=== PATIENT | female | born 1990 | race Caucasian/White ===

== ENCOUNTER 2024-03-26 15:22 | Outpatient (CLI) | payer OTHER, SELFPAY ==
[2024-03-26 16:20] LABS: Basophils % 0.2 % (0.1-2.0); Eosinophils % 0.4 % (0.1-12.0); Hematocrit 39.4 % (37.0-47.0); Hemoglobin 12.7 g/dL (12.2-16.2); Lymphocytes % 23.3 % (10-50); Mean Corpuscular HGB Conc 32.3 g/dL (31.8-35.4); Mean Corpuscular Hemoglobin 27.1 pg (27.0-31.2); Mean Corpuscular Volume 83.9 fl (81-99); Mean Platelet Volume 10.9 fl (7.4-10.4); Monocytes # 0.4 K/mm3 (0.1-1.0); Monocytes % 4.4 % (1.7-9.3); Neutrophils # 6.3 K/mm3 (1.8-7.8); Neutrophils % 71.6 % (37.0-80.0); Platelet Count 192 K/mm3 (142-424); Red Blood Count 4.69 M/mm3 (4.20-5.40); Red Cell Distribution Width 14.2 % (11.5-17.5); White Blood Count 8.7 K/mm3 (4.8-10.8)
[2024-03-26 16:48] LABS: HCG,Quantitative 15 mIU/ml (0-5.42)
[2024-03-27 12:39] LABS: HIV (1&2) Antibody Rapid NON REACTIVE
[2024-03-28 06:08] LABS: HCV Ab Non Reactive (Non Reactive); Hepatitis B Surface Antigen Negative (Negative)
[2024-03-28 07:13] LABS: Rubella Antibodies, IgG 2.84 index (Immune >0.99)
[2024-03-28 08:39] LABS: Progesterone 10.8 ng/mL (.)
[2024-03-28 13:18] LABS: Rapid Plasma Reagin Ab Titer Non Reactive titer (NonRea<1:1)
== END 2024-03-26 23:59 | disposition home or self-care (01) ==
LOC: LAB 15:25
PROVIDERS: PCP Family Medicine; Visit Provider Obstetrics & Gynecology
DX: Z34.90 Encounter for supervision of normal pregnancy, unspecified, unspecified trimester (principal)
CPT/HCPCS: 36415; 84144; 84702; 85025; 86593; 86762; 86850; 87086; 87340

== ENCOUNTER 2024-03-28 12:25 | Outpatient (CLI) | payer OTHER, SELFPAY ==
[2024-03-28 14:02] LABS: HCG,Quantitative 43 mIU/ml (0-5.42)
== END 2024-03-28 23:59 | disposition home or self-care (01) ==
LOC: LAB 12:26
PROVIDERS: PCP Family Medicine; Visit Provider Obstetrics & Gynecology
DX: Z34.91 Encounter for supervision of normal pregnancy, unspecified, first trimester (principal); Z3A.01 Less than 8 weeks gestation of pregnancy
CPT/HCPCS: 36415; 84702

== ENCOUNTER 2024-03-31 12:01 | Outpatient (CLI) | payer OTHER, SELFPAY ==
[2024-03-31 13:16] LABS: HCG,Quantitative 59 mIU/ml (0-5.42)
== END 2024-03-31 23:59 | disposition home or self-care (01) ==
PROVIDERS: PCP Family Medicine; Visit Provider Obstetrics & Gynecology
DX: Z34.91 Encounter for supervision of normal pregnancy, unspecified, first trimester (principal); Z3A.01 Less than 8 weeks gestation of pregnancy
CPT/HCPCS: 36415; 84702

== ENCOUNTER 2024-04-02 12:38 | Outpatient (CLI) | payer OTHER, SELFPAY ==
[2024-04-02 14:30] LABS: HCG,Quantitative 25 mIU/ml (0-5.42)
== END 2024-04-02 23:59 | disposition home or self-care (01) ==
LOC: LAB 12:40
PROVIDERS: PCP Family Medicine; Visit Provider Obstetrics & Gynecology
DX: Z34.90 Encounter for supervision of normal pregnancy, unspecified, unspecified trimester (principal)
CPT/HCPCS: 36415; 84702

== ENCOUNTER 2024-04-11 13:28 | Outpatient (CLI) | payer OTHER, SELFPAY ==
[2024-04-11 14:47] LABS: HCG,Quantitative < 2 mIU/ml (0-5.42)
== END 2024-04-11 23:59 | disposition home or self-care (01) ==
LOC: LAB 13:28
PROVIDERS: PCP Family Medicine; Visit Provider Obstetrics & Gynecology
DX: O03.9 Complete or unspecified spontaneous abortion without complication (principal)
CPT/HCPCS: 36415; 84702

== ENCOUNTER 2024-05-08 12:17 | Outpatient (CLI) | payer OTHER, SELFPAY ==
[2024-05-08 14:28] LABS: HCG,Quantitative 5189 mIU/ml (0-5.42)
[2024-05-10 10:11] LABS: Progesterone 19.9 ng/mL (.)
== END 2024-05-08 23:59 | disposition home or self-care (01) ==
LOC: LAB 12:18
PROVIDERS: PCP Family Medicine; Visit Provider Obstetrics & Gynecology
DX: Z32.01 Encounter for pregnancy test, result positive (principal)
CPT/HCPCS: 36415; 84144; 84702

== ENCOUNTER 2024-05-22 10:09 | Outpatient (CLI) | payer OTHER, SELFPAY ==
--- NOTE | 2024-05-22 10:17 | US_ITS ---
PROCEDURE: US OB <= 14 WEEKS FETUS CLINICAL INDICATION: dates/viability COMPARISON: No exams were available for comparison FINDINGS: Transvaginal sonographic images of the pelvis were obtained. From her last menstrual period she is 6weeks 5days. An intrauterine gestational sac is present with a pole with a crown-rump length of 0.67cm This correlates to a gestational age of 6weeks 4days. heart tones are present with an FHR of 134bpm. Yolk sac is noted. The yolk sac measures 4.7mm. The right ovary is seen and appears normal. The left ovary is seen and appears normal. There is no fluid in the cul-de-sac. IMPRESSION: 1. Viable fetus within the uterine cavity. 2. Fetus measures 6 weeks 4 days which is congruent with her last menstrual period. Her NICHOLE will remain 01/10/2025. 3. Both ovaries are seen and appear normal. 4. No fluid in the cul-de-sac. Dictated by: Erasto Melo MD 05/22/2024 11:03 Erasto Melo MD in [facility] 05/22/2024 11:03
== END 2024-05-22 23:59 | disposition home or self-care (01) ==
PROVIDERS: PCP Family Medicine; Visit Provider Obstetrics & Gynecology
DX: Z34.90 Encounter for supervision of normal pregnancy, unspecified, unspecified trimester (principal)
CPT/HCPCS: 76801; 87086

== ENCOUNTER 2024-06-16 09:20 | Outpatient (CLI) | payer OTHER, SELFPAY ==
[2024-06-16 10:07] LABS: Basophils % 0.2 % (0.1-2.0); Eosinophils # 0.1 K/mm3 (0.0-0.4); Eosinophils % 0.7 % (0.1-12.0); Hematocrit 39.7 % (37.0-47.0); Hemoglobin 12.7 g/dL (12.2-16.2); Lymphocytes # 2.2 K/mm3 (0.7-4.5); Lymphocytes % 24.2 % (10-50); Mean Corpuscular Hemoglobin 27.2 pg (27.0-31.2); Mean Platelet Volume 9.9 fl (7.4-10.4); Monocytes # 0.4 K/mm3 (0.1-1.0); Monocytes % 4.4 % (1.7-9.3); Neutrophils # 6.4 K/mm3 (1.8-7.8); Neutrophils % 70.5 % (37.0-80.0); Platelet Count 176 K/mm3 (142-424); Red Blood Count 4.66 M/mm3 (4.20-5.40); Red Cell Distribution Width 14.6 % (11.5-17.5); White Blood Count 9.1 K/mm3 (4.8-10.8)
[2024-06-16 11:20] LABS: HIV (1&2) Antibody Rapid NONREACTIVE (NONREACTIVE)
[2024-06-17 08:19] LABS: HCV Ab Non Reactive (Non Reactive); Hepatitis B Surface Antigen Negative (Negative)
[2024-06-17 11:29] LABS: Rubella Antibodies, IgG 2.63 index (Immune >0.99)
[2024-06-17 12:40] LABS: Rapid Plasma Reagin Ab Titer Non Reactive titer (NonRea<1:1)
== END 2024-06-16 23:59 | disposition home or self-care (01) ==
LOC: LAB 09:21
PROVIDERS: PCP Family Medicine; Visit Provider Obstetrics & Gynecology
DX: Z34.90 Encounter for supervision of normal pregnancy, unspecified, unspecified trimester (principal)
CPT/HCPCS: 36415; 85025; 86593; 86762; 86803; 86850; 87340; 87389

== ENCOUNTER 2024-07-11 15:26 | Outpatient (CLI) | payer OTHER, SELFPAY ==
[2024-07-11 16:19] LABS: Glucose,Fasting 113 mg/dl (74-100)
[2024-07-11 17:09] LABS: Glucose 1 Hour 148 mg/dL (74-100)
== END 2024-07-11 23:59 | disposition home or self-care (01) ==
LOC: LAB 15:27
PROVIDERS: PCP Family Medicine; Visit Provider Obstetrics & Gynecology
DX: O09.299 Supervision of pregnancy with other poor reproductive or obstetric history, unspecified trimester (principal); Z86.32 Personal history of gestational diabetes
CPT/HCPCS: 36415; 82951

== ENCOUNTER 2024-07-19 08:44 | Outpatient (CLI) | payer OTHER, SELFPAY ==
[2024-07-19 09:08] LABS: Glucose,Fasting 95 mg/dl (74-100)
[2024-07-19 10:35] LABS: Glucose 1 Hour 154 mg/dL (74-100)
[2024-07-19 11:17] LABS: Glucose 2 Hour 141 mg/dL (74-100)
[2024-07-19 12:14] LABS: Glucose 3 Hour 49 mg/dL (74-100)
== END 2024-07-19 23:59 | disposition home or self-care (01) ==
LOC: LAB 08:45
PROVIDERS: PCP Family Medicine; Visit Provider Obstetrics & Gynecology
DX: O09.299 Supervision of pregnancy with other poor reproductive or obstetric history, unspecified trimester (principal); Z86.32 Personal history of gestational diabetes
CPT/HCPCS: 36415; 82951

== ENCOUNTER 2024-08-22 12:50 | Outpatient (CLI) | payer OTHER, SELFPAY ==
--- NOTE | 2024-08-22 12:56 | US_ITS ---
PROCEDURE: US OB >= 14 WEEKS FETUS CLINICAL INDICATION: 20 week anatomy COMPARISON: US US OB <= 14 WEEKS FETUS from 05/22/2024 FINDINGS: Transabdominal sonographic images of the pelvis were obtained. From her established due date she is . Single viable intrauterine gestation. Cephalic position. Placenta: Posteriorplacenta grade 1. There is an average amount of fluid. The cervix appears satisfactory. Closed and measuring 3.24 cm in length. Complete survey performed and was unremarkable on the submitted images as in PACS. No discrete anomalies identified on survey imaging by technologist. Active fetus. Three-vessel cord with satisfactory umbilical cord insertion. 4- chamber heart noted. Situs, aortic arch, LVOT, RVOT, three-vessel view appear normal. Not well visualized. Survey of brain & ventricles Unremarkable. Cerebellum, thalamus, choroid plexus, cisterna magna appear normal. Face and neck survey unremarkable. Profile, nasion, lips and nose appeared normal. Not well visualized. Diaphragm and chest views unremarkable. Abdomen: Both kidneys noted and unremarkable. Stomach and bladder noted and satisfactory. Spine: Survey of the spine satisfactory with no anomalies identified nor imaged. Cervical, thoracic, lower spine appear normal. Both arms and legs noted. Amniotic Fluid: Adequate. MCV 4.17 cm Measurements: Average ultrasound age 19weeks 6days. Estimated due date by ultrasound age 0401/10/2025. Estimated weight 320g BPD = 19weeks 6days HC = 19weeks 4days AC = 20weeks 2days FL = 19weeks 5days Growth Percentile= 48 Heart Rate = 155bpm Cerebellum = 19weeks 1day Humerus = 20weeks 4days HC/AC is 1.12 FL/BPD is 0.68 FL/AC is 0.21 IMPRESSION: 1. Viable fetus in the cephalic presentation with a posterior placenta grade 1. 2. The fluid is within normal limits, MVP 4.17 cm. 3. Anatomical scan appears normal. Difficult scan secondary to maternal body habitus and position. Profile and cardiac views incomplete. Suggest repeat scan in 2-3 weeks. 4. biometry is consistent with the dates. Dictated by: Erasto Melo MD 08/23/2024 05:52 Erasto Melo MD in [facility] 08/23/2024 05:52
== END 2024-08-22 23:59 | disposition home or self-care (01) ==
LOC: RAD 12:51
PROVIDERS: PCP Family Medicine; Visit Provider Obstetrics & Gynecology
DX: O34.29 Maternal care due to uterine scar from other previous surgery (principal); Z3A.19 19 weeks gestation of pregnancy
CPT/HCPCS: 76805

== ENCOUNTER 2024-09-12 12:45 | Outpatient (CLI) | payer OTHER, SELFPAY ==
--- NOTE | 2024-09-12 12:48 | US_ITS ---
PROCEDURE: US OB FOLLOW UP CLINICAL INDICATION: baby's profile and heart views are not well seen COMPARISON: US US OB <= 14 WEEKS FETUS from 05/22/2024 US US OB >= 14 WEEKS FETUS from 08/22/2024 FINDINGS: Transabdominal sonographic images of the pelvis were obtained. The following parameters are obtained: From her established due date she is 22weeks 6days Viable fetus in the cephalic presentation with a posterior placenta grade 1. The cervix measures 3.7 cm heart rate: 140bpm bpm. Amniotic fluid: Appears normal No obvious anomalies evident. profile seen, nasion, stomach, bladder, kidneys, three-vessel cord, four chamber heart appear normal. cardiac views: Four-chamber heart, LVOT, RVOT, three-vessel view appear normal. IMPRESSION: 1. Viable fetus in the cephalic presentation with a posterior placenta grade 1. 2. The fluid is within normal limits. 3. Continues to be a difficult examination. profile views were seen today. Cardiac views appear normal. Four-chamber heart, LVOT, RVOT and three-vessel views were seen today. Dictated by: Erasto Melo MD 09/12/2024 17:55 Erasto Melo MD in [facility] 09/12/2024 17:55
== END 2024-09-12 23:59 | disposition home or self-care (01) ==
LOC: RAD 12:46
PROVIDERS: PCP Family Medicine; Visit Provider Obstetrics & Gynecology
DX: Z36.2 Encounter for other antenatal screening follow-up (principal); O34.29 Maternal care due to uterine scar from other previous surgery; Z87.59 Personal history of other complications of pregnancy, childbirth and the puerperium; O09.299 Supervision of pregnancy with other poor reproductive or obstetric history, unspecified trimester; Z86.32 Personal history of gestational diabetes
CPT/HCPCS: 76816

== ENCOUNTER 2024-10-18 10:00 | Outpatient (CLI) | payer OTHER, SELFPAY ==
[2024-10-18 11:28] LABS: Basophils % 0.2 % (0.1-2.0); Eosinophils # 0.1 K/mm3 (0.0-0.4); Eosinophils % 0.7 % (0.1-12.0); Hematocrit 35.3 % (37.0-47.0); Hemoglobin 11.3 g/dL (12.2-16.2); Lymphocytes # 2.4 K/mm3 (0.7-4.5); Lymphocytes % 19.8 % (10-50); Mean Corpuscular Hemoglobin 27.9 pg (27.0-31.2); Mean Corpuscular Volume 87.2 fl (81-99); Monocytes # 0.7 K/mm3 (0.1-1.0); Neutrophils # 8.8 K/mm3 (1.8-7.8); Neutrophils % 72.6 % (37.0-80.0); Platelet Count 175 K/mm3 (142-424); Red Blood Count 4.05 M/mm3 (4.20-5.40); Red Cell Distribution Width 13.9 % (11.5-17.5)
[2024-10-18 11:43] LABS: Glucose 1 Hour 160 mg/dL (74-100)
[2024-10-19 06:33] LABS: RPR W/RFX Titers Nonreactive (Nonreactive)
== END 2024-10-18 23:59 | disposition home or self-care (01) ==
LOC: LAB 10:01
PROVIDERS: PCP Family Medicine; Visit Provider Obstetrics & Gynecology
DX: O99.210 Obesity complicating pregnancy, unspecified trimester (principal)
CPT/HCPCS: 36415; 82947; 85025; 86592

== ENCOUNTER 2024-10-29 09:09 | Outpatient (CLI) | payer OTHER, SELFPAY ==
--- NOTE | 2024-10-29 09:13 | US_ITS ---
PROCEDURE: US OB FOLLOW UP CLINICAL INDICATION: Growth COMPARISON: US US OB <= 14 WEEKS FETUS from 05/22/2024 US US OB >= 14 WEEKS FETUS from 08/22/2024 US US OB FOLLOW UP from 09/12/2024 FINDINGS: Transabdominal sonographic images of the pelvis were obtained. The following parameters are obtained: From her established due date she is 29weeks 5days Viable fetus in the cephalic presentation with a posterior placenta grade 2. The cervix measures 4.12 cm heart rate: 153bpm bpm. Estimated weight 16 20 grams, 3 lb 9 oz BPD: 31weeks 1day, 79 percentile HC: 30weeks 5days, 42 percentile AC: 30weeks 6days, 77 percentile FL: 30weeks 3days, 55 percentile HC/AC: 1.05 FL/BPD: 0.75 FL/AC: 0.22 Growth percentile: 72 70 second percentile. Amniotic fluid index: 25.87cm, MVP 8.45 cm 70 second percentile. No obvious anomalies evident. profile seen, stomach, bladder, kidneys, three-vessel cord, four chamber heart appear normal. There is a small intracardiac echogenic foci within the left ventricle. Suggest follow-up . IMPRESSION: 1. Viable fetus in the cephalic presentation with a posterior placenta grade 2. 2. The fluid is elevated with polyhydramnios with an amniotic fluid index 25.87 cm, MVP 8.45 cm. Suggest a maternal medicine consult. 3. There has been good interval growth with the fetus currently 72nd percentile 4. An intracardiac echogenic foci is seen within the left ventricle of the heart and suggest follow-up . 5. The rest of the limited anatomical scan appears normal. Dictated by: Erasto Melo MD 10/29/2024 10:27 Erasto Melo MD in [facility] 10/29/2024 10:27
== END 2024-10-29 23:59 | disposition home or self-care (01) ==
LOC: RAD 09:10
PROVIDERS: PCP Family Medicine; Visit Provider Obstetrics & Gynecology
DX: O09.293 Supervision of pregnancy with other poor reproductive or obstetric history, third trimester (principal); O34.29 Maternal care due to uterine scar from other previous surgery; Z87.59 Personal history of other complications of pregnancy, childbirth and the puerperium; Z86.32 Personal history of gestational diabetes; Z3A.29 29 weeks gestation of pregnancy
CPT/HCPCS: 76816

== ENCOUNTER 2024-11-20 10:44 | Outpatient (CLI) | payer OTHER, SELFPAY ==
--- NOTE | 2024-11-20 10:51 | US_ITS ---
PROCEDURE: US OB BIOPHYSICAL PROFILE CLINICAL INDICATION: BPP with SEBASTIÁN Gestational hypertension COMPARISON: US US OB <= 14 WEEKS FETUS from 05/22/2024 US US OB >= 14 WEEKS FETUS from 08/22/2024 US US OB FOLLOW UP from 09/12/2024 US OB FOLLOW UP from 10/29/2024 FINDINGS: Transabdominal sonographic images of the uterus were obtained. From her established due date she is 32weeks 5days. The following parameters are obtained: Viable Fetus in the cephalic presentation with a posterior placenta grade 2. Average ultrasound age is 34weeks 2days Estimated weight 2,320g, 5 lb 2 oz The cervix measures 3.72 cm. Measurements: heart Rate = 153bpm BPD = 35weeks 0 days, 94 percentile HC = 35weeks 1day, 74 percentile AC = 34weeks 6days, 94 percentile FL = 31weeks 6days, 15 percentile HC/AC is 1.01 FL/BPD is 0.71 FL/AC is 0.2 79 percentile Amniotic fluid index: 19.83cm, MVP 6.60 cm. Qualitative AFV:2 Breathing movements: 2 Gross Body Movements: 2 Tone: 2 Biophysical profile score: 8 No obvious anomalies evident.Kidneys, profile, stomach, bladder, four-chamber heart, three-vessel cord appear normal. IMPRESSION: 1. Viable fetus in the cephalic presentation with a posterior placenta grade 2. 2. The fluid is within normal limits with an amniotic fluid index 19.83 cm, MVP 6.6 cm. The previously described polyhydramnios has now resolved. 3. Biophysical profile is 8/8 with good breathing movement and movement seen. 4. There has been good interval growth with the fetus currently 79th percentile. 5. Limited anatomical scan appears normal. Dictated by: Erasto Melo MD 11/20/2024 13:29 Erasto Melo MD in [place] 11/20/2024 13:29
== END 2024-11-20 23:59 | disposition home or self-care (01) ==
LOC: RAD 10:45
PROVIDERS: PCP Family Medicine; Visit Provider Obstetrics & Gynecology
DX: O40.3XX0 Polyhydramnios, third trimester, not applicable or unspecified (principal); O24.419 Gestational diabetes mellitus in pregnancy, unspecified control; O09.293 Supervision of pregnancy with other poor reproductive or obstetric history, third trimester; O28.3 Abnormal ultrasonic finding on antenatal screening of mother; Z3A.32 32 weeks gestation of pregnancy; Z98.891 History of uterine scar from previous surgery; Z87.59 Personal history of other complications of pregnancy, childbirth and the puerperium
CPT/HCPCS: 76816; 76819

== ENCOUNTER 2024-11-27 10:11 | Outpatient (CLI) | payer OTHER, SELFPAY ==
--- NOTE | 2024-11-27 10:17 | US_ITS ---
PROCEDURE: US OB BIOPHYSICAL PROFILE CLINICAL INDICATION: BPP with SEBASTIÁN COMPARISON: US US OB <= 14 WEEKS FETUS from 05/22/2024 US US OB >= 14 WEEKS FETUS from 08/22/2024 US US OB FOLLOW UP from 09/12/2024 US US OB FOLLOW UP from 10/29/2024 US US OB BIOPHYSICAL PROFILE from 11/20/2024 FINDINGS: Transabdominal sonographic images of the uterus were obtained. From her established due date she is 33weeks 5days. The following parameters are obtained: Viable Fetus in the cephalic presentation with a posterior placenta grade 1-2. Measurements: heart Rate = 136bpm The cervix measures 3.28 cm. Amniotic fluid index: 12.83cm, MVP 4.51 cm. Qualitative AFV:2 Breathing movements: 2 Gross Body Movements: 2 Tone: 2 Biophysical profile score: 8 No obvious anomalies evident.Kidneys, profile, bladder, three-vessel cord appear normal. IMPRESSION: 1. Viable fetus in the cephalic presentation with a posterior placenta grade 1-2. 2. Fluid is within normal limits with an amniotic fluid index 12.83 cm, MVP 4.51 cm. 3. Biophysical profile was not scored by the corporate development intern but there is good breathing movement and movement along with normal fluid and tone. Biophysical profile 8/8 therefore. 4. Limited anatomical scan appears normal. Dictated by: Erasto Melo MD 11/27/2024 18:59 Erasto Melo MD in [place] 11/27/2024 18:59
== END 2024-11-27 23:59 | disposition home or self-care (01) ==
LOC: RAD 10:12
PROVIDERS: PCP Family Medicine; Visit Provider Obstetrics & Gynecology
DX: O40.3XX0 Polyhydramnios, third trimester, not applicable or unspecified (principal); Z87.59 Personal history of other complications of pregnancy, childbirth and the puerperium; O09.293 Supervision of pregnancy with other poor reproductive or obstetric history, third trimester; Z86.32 Personal history of gestational diabetes; O28.3 Abnormal ultrasonic finding on antenatal screening of mother; Z3A.33 33 weeks gestation of pregnancy
CPT/HCPCS: 76819

== ENCOUNTER 2024-12-04 10:26 | Outpatient (CLI) | payer OTHER, SELFPAY ==
--- NOTE | 2024-12-04 10:41 | US_ITS ---
PROCEDURE: US OB BIOPHYSICAL PROFILE CLINICAL INDICATION: GDM, class A2 COMPARISON: US US OB <= 14 WEEKS FETUS from 05/22/2024 US US OB >= 14 WEEKS FETUS from 08/22/2024 US OB FOLLOW UP from 09/12/2024 US OB FOLLOW UP from 10/29/2024 US OB BIOPHYSICAL PROFILE from 11/20/2024 US OB BIOPHYSICAL PROFILE from 11/27/2024 FINDINGS: Transabdominal sonographic images of the uterus were obtained. From her established due date she is 34weeks 5days. The following parameters are obtained: Viable Fetus in the cephalic presentation with a posterior placenta grade 2. Average ultrasound age is 35weeks 6days Estimated weight 2,772g, 6 lb 2 oz Cervix measures 4.52 cm. Measurements: heart Rate = 156bpm BPD = 37weeks 1day, 97 percentile HC = 35weeks 6days, 43 percentile AC = 36weeks 4days, 94 percentile FL = 33weeks 6days, 20 percentile HC/AC is 0.98 FL/BPD is 0.72 FL/AC is 0.2 77 percentile Amniotic fluid index: 17.41cm, MVP 6.08 cm. Qualitative AFV:2 Breathing movements: 2 Gross Body Movements: 2 Tone: 2 Biophysical profile score: 8 No obvious anomalies evident.Kidneys, profile, stomach, bladder, four-chamber heart, three-vessel cord appear normal. IMPRESSION: 1. Viable fetus in the cephalic presentation with a posterior placenta grade 2. 2. The fluid is within normal limits with an amniotic fluid index 17.41, MVP 6.08 cm. 3. Biophysical profile is 8/8 with good breathing movement and movement seen. 4. There has been good interval growth of the fetus currently 77th percentile. 5. Limited anatomical scan appears normal. Dictated by: Erasto Melo MD 12/04/2024 17:47 Erasto Melo MD in [place] 12/04/2024 17:47
== END 2024-12-04 23:59 | disposition home or self-care (01) ==
LOC: RAD 10:27
PROVIDERS: PCP Family Medicine; Visit Provider Obstetrics & Gynecology
DX: O24.419 Gestational diabetes mellitus in pregnancy, unspecified control (principal); Z87.59 Personal history of other complications of pregnancy, childbirth and the puerperium; O09.293 Supervision of pregnancy with other poor reproductive or obstetric history, third trimester; O99.213 Obesity complicating pregnancy, third trimester; Z98.891 History of uterine scar from previous surgery; Z3A.34 34 weeks gestation of pregnancy
CPT/HCPCS: 76816; 76819

== ENCOUNTER 2024-12-11 09:39 | Outpatient (CLI) | payer OTHER, SELFPAY ==
--- NOTE | 2024-12-11 09:45 | US_ITS ---
PROCEDURE: US OB BIOPHYSICAL PROFILE CLINICAL INDICATION: Needing scheduled on 12/11/24-GDM COMPARISON: US US OB <= 14 WEEKS FETUS from 05/22/2024 US US OB >= 14 WEEKS FETUS from 08/22/2024 US OB FOLLOW UP from 09/12/2024 US OB FOLLOW UP from 10/29/2024 US OB BIOPHYSICAL PROFILE from 11/20/2024 US OB BIOPHYSICAL PROFILE from 11/27/2024 US OB BIOPHYSICAL PROFILE from 12/04/2024 FINDINGS: Transabdominal sonographic images of the uterus were obtained. From her established due date she is 35weeks 5days. The following parameters are obtained: Viable Fetus in the cephalic presentation with a posterior placenta grade 2. The cervix measures 3.13 cm-4.12 cm Measurements: heart Rate = 156bpm Amniotic fluid index: 20.18cm, MVP 9.35 cm Qualitative AFV:2 Breathing movements: 2 Gross Body Movements: 2 Tone: 2 Biophysical profile score: 8 No obvious anomalies evident.Kidneys, profile, stomach, bladder, four-chamber heart, three-vessel cord appear normal. IMPRESSION: 1. Viable fetus in the cephalic presentation with a posterior placenta grade 2. 2. The fluid is within normal limits with amniotic fluid index 20.18 cm, MVP 9.35 cm consistent with mild polyhydramnios. 3. Biophysical profile is 8/8 with good breathing movement and movement seen. 4. Limited anatomical scan appears normal. Dictated by: Erasto Melo MD 12/11/2024 16:53 Erasto Melo MD in [place] 12/11/2024 16:53
== END 2024-12-11 23:59 | disposition home or self-care (01) ==
LOC: RAD 09:39
PROVIDERS: PCP Family Medicine; Visit Provider Obstetrics & Gynecology
DX: O24.419 Gestational diabetes mellitus in pregnancy, unspecified control (principal); O99.213 Obesity complicating pregnancy, third trimester; O09.293 Supervision of pregnancy with other poor reproductive or obstetric history, third trimester; Z98.891 History of uterine scar from previous surgery; Z87.59 Personal history of other complications of pregnancy, childbirth and the puerperium; Z3A.35 35 weeks gestation of pregnancy
CPT/HCPCS: 76819

== ENCOUNTER 2024-12-15 11:16 | Outpatient (CLI) | payer OTHER, SELFPAY ==
--- NOTE | 2024-12-15 11:30 | US_ITS ---
PROCEDURE: US OB BIOPHYSICAL PROFILE CLINICAL INDICATION: DEBORA for Non-Reactive NST COMPARISON: US US OB <= 14 WEEKS FETUS from 05/22/2024 US US OB >= 14 WEEKS FETUS from 08/22/2024 US US OB FOLLOW UP from 09/12/2024 US US OB FOLLOW UP from 10/29/2024 US US OB BIOPHYSICAL PROFILE from 11/20/2024 US US OB BIOPHYSICAL PROFILE from 11/27/2024 US US OB BIOPHYSICAL PROFILE from 12/04/2024 US OB BIOPHYSICAL PROFILE from 12/11/2024 FINDINGS: Transabdominal sonographic images of the uterus were obtained. From her established due date she is 36weeks 2days. The following parameters are obtained: Viable Fetus in the cephalic presentation with a posterior placenta grade 2. The cervix measures 3.05 cm-3.98 cm Measurements: heart Rate = 132bpm Amniotic fluid index: 14.59cm, MVP 5.08 cm Qualitative AFV:2 Breathing movements: 2 Gross Body Movements: 2 Tone: 2 Biophysical profile score: 8 No obvious anomalies evident.Kidneys, profile, stomach, bladder, four-chamber heart, three-vessel cord appear normal. There is mildly left renal pelvis dilation measuring 4.7 mm. It was noted by the cloth mercerizer operator that the bladder was distended the entire exam. IMPRESSION: 1. Viable fetus in the cephalic presentation with a posterior placenta grade 2. 2. The fluid is within normal limits with an amniotic fluid index 14.59 cm, MVP 5.08 cm 3. Biophysical profile is 8/8 with good breathing movement and movement seen. 4. There is mild left renal pelvis dilation measuring 4.7 mm. 5. The cloth mercerizer operator noted that the bladder was distended throughout the entire exam. 6. The rest of the limited anatomical scan appears normal. Dictated by: Erasto Melo MD 12/15/2024 14:10 Erasto Melo MD in [place] 12/15/2024 14:10
== END 2024-12-15 23:59 | disposition home or self-care (01) ==
LOC: RAD 11:17
PROVIDERS: PCP Family Medicine; Visit Provider Obstetrics & Gynecology
DX: O28.8 Other abnormal findings on antenatal screening of mother (principal); O24.419 Gestational diabetes mellitus in pregnancy, unspecified control; Z3A.36 36 weeks gestation of pregnancy
CPT/HCPCS: 76819

== ENCOUNTER 2024-12-18 12:57 | Outpatient (CLI) | payer OTHER, SELFPAY ==
--- NOTE | 2024-12-18 13:00 | US_ITS ---
PROCEDURE: US OB BIOPHYSICAL PROFILE CLINICAL INDICATION: Needing scheduled on 12/18/24-GDM COMPARISON: US US OB <= 14 WEEKS FETUS from 05/22/2024 US US OB >= 14 WEEKS FETUS from 08/22/2024 US OB FOLLOW UP from 09/12/2024 US OB FOLLOW UP from 10/29/2024 US OB BIOPHYSICAL PROFILE from 11/20/2024 US OB BIOPHYSICAL PROFILE from 11/27/2024 US OB BIOPHYSICAL PROFILE from 12/04/2024 US OB BIOPHYSICAL PROFILE from 12/15/2024 FINDINGS: Transabdominal sonographic images of the uterus were obtained. From her established due date she is 36weeks 5days. The following parameters are obtained: Viable Fetus in the cephalic presentation with a posterior placenta grade 2. The cervix measures 3.27 cm. Measurements: heart Rate = 142bpm Amniotic fluid index: 15.82cm, MVP 4.80 cm. Qualitative AFV:2 Breathing movements: 2 Gross Body Movements: 2 Tone: 2 Biophysical profile score: 8 No obvious anomalies evident.Kidneys, profile, bladder, stomach, four-chamber heart, three-vessel cord appear normal. IMPRESSION: 1. Viable fetus in the cephalic presentation with a posterior placenta grade 2. 2. The fluid is within normal limits with an amniotic fluid index 15.82 cm, MVP 4.80 cm. 3. Biophysical profile is 8/8 with good breathing movement and movement seen. 4. Limited anatomical scan appears normal. Dictated by: Erasto Melo MD 12/18/2024 13:54 Erasto Melo MD in [place] 12/18/2024 13:54
== END 2024-12-18 23:59 | disposition home or self-care (01) ==
LOC: RAD 12:58
PROVIDERS: PCP Family Medicine; Visit Provider Obstetrics & Gynecology
DX: O24.419 Gestational diabetes mellitus in pregnancy, unspecified control (principal); O99.213 Obesity complicating pregnancy, third trimester; O09.293 Supervision of pregnancy with other poor reproductive or obstetric history, third trimester; Z98.891 History of uterine scar from previous surgery; Z87.59 Personal history of other complications of pregnancy, childbirth and the puerperium; Z3A.36 36 weeks gestation of pregnancy
CPT/HCPCS: 76819

== ENCOUNTER 2024-12-22 04:53 | Inpatient (IN) | payer OTHER, SELFPAY ==
[2024-12-22] VITALS (10 sets, daily range): BP systolic 104–137; BP diastolic 52–84; PULSE 62–102; RESP 16–18; TEMP 36.8–36.9; O2SAT 97–100; BMI 43.7
[2024-12-22] MEDS: LACTATED RINGERS 1000ML 1,000 ML 250 ML IV (05:35)
[2024-12-22 05:47] LABS: Microscopic, Urine URINE MICROSCOPIC (MICROSCOPIC)
[2024-12-22 05:51] LABS: Appearance,Urine CLEAR (Clear); Bilirubin,Urine Negative (Negative); Blood, Urine Negative (Negative); Color,Urine YELLOW (Yellow); Glucose,Urine (UA) Negative (Negative); Ketones,Urine Negative (Negative); Leukocyte Esterase,Urine Negative (Negative); Nitrate,Urine Negative (Negative); PH,Urine 6.5 (5.0-8.5); Protein,Urine Negative (Negative); Urobilinogen,Urine 0.2 EU/dl (0.2)
[2024-12-22 05:53] LABS: Basophils % 0.1 % (0.1-2.0); Eosinophils # 0.1 K/mm3 (0.0-0.4); Eosinophils % 0.6 % (0.1-12.0); Hematocrit 35.8 % (37.0-47.0); Hemoglobin 11.7 g/dL (12.2-16.2); Lymphocytes # 2.6 K/mm3 (0.7-4.5); Lymphocytes % 23.9 % (10-50); Mean Corpuscular HGB Conc 32.7 g/dL (31.8-35.4); Mean Corpuscular Hemoglobin 28.5 pg (27.0-31.2); Mean Corpuscular Volume 87.3 fl (81-99); Mean Platelet Volume 13.2 fl (7.4-10.4); Monocytes # 0.6 K/mm3 (0.1-1.0); Monocytes % 5.1 % (1.7-9.3); Neutrophils # 7.5 K/mm3 (1.8-7.8); Neutrophils % 69.7 % (37.0-80.0); Platelet Count 158 K/mm3 (142-424); Red Cell Distribution Width 14.6 % (11.5-17.5); White Blood Count 10.8 K/mm3 (4.8-10.8)
[2024-12-22 05:58] LABS: Chloride 107 mmol/L (98-107); Potassium 4.4 mmoL/L (3.5-5.1); Sodium 135 mmol/L (136-145)
[2024-12-22 06:01] LABS: Anion Gap 8.4 mEq/L (5-15); Blood Urea Nitrogen 7 mg/dl (7-17); Carbon Dioxide 24 mmol/L (22.0-30.0); Creatinine Clearance Estimated 86 mL/min (50-200); Estimated Glomerular Filt Rate 82 ml/min (>60); GFR (African American) 99 ML/MIN (>60)
[2024-12-22 06:02] LABS: Calcium 8.9 mg/dl (8.4-10.2); Glucose 82 mg/dl (74-100)
[2024-12-22] MEDS: CITRIC ACID/SODIUM CITRATE ORAL SOLN 30ML UDC 30 ML PO (07:05)
--- NOTE | 2024-12-22 07:24 | HMH.PHAINT1 ---
Pharmacy Intervention Comments: MEDICATION RECONCILIATION COMPLETED ON PATIENT USING EXTERNAL FILL HISTORY FROM PHARMACY. -MABEL CABRERA, SHIVAMD
[2024-12-22] MEDS: CEFAZOLIN SODIUM 2 GM in 0.9 % SODIUM CHLORIDE 100 ML IV ×3 (07:27→23:19)
--- NOTE | 2024-12-22 07:30 | EXP.OB.APHP ---
OB - H&P: HPI Antepartum History of Present Illness Chief complaint: Scheduled repeat History of present illness: Mrs Afua Hays is a 34 yo at 37w2d who presents to [facility] for scheduled repeat . complicated by GDMA2, maternal obestiy, history of x 2 and history of uterine myomectomy (Hx of endometriosis, stage 4, with excision of endometriosis, PCOS and fibroid uterus; history of myomectomy by [facility] in [place]). Last operative noted commented on dense adhesions between bowel and left side of uterus and ovary as well as bladder densely adhered. She is taking Glyburide 5 mg PO daily. She is also taking Labetalol 100 mg PO BID for episodic migraines. She has had good care. Baby is active. History of Present Criteria for establishing EDC:: based on 1st trimester US only Labs Blood type: A (+) positive Rubella: immune RPR/VDRL: nonreactive GBS status: unknown HBsAG: negative PFSH PFSH Disclaimer: The information contained in this section may have been updated after the patient was seen, as this information can be updated by other users. Medical History (Updated 12/22/24 @ 09:29 by Blanca Olivas DO) 37 weeks gestation of echogenic intracardiac focus on ultrasound Polyhydramnios in third trimester GDM, class A2 Maternal obesity affecting , antepartum History of endometriosis with history of uterine myomectomy History of gestational hypertension Hx of gestational diabetes in prior , currently resulting from in-vitro fertilization Subchorionic hemorrhage PCOS (polycystic ovarian syndrome) Migraines Surgical History Hx of cholecystectomy Hx of section Family History Mother Diabetes Grandfather Diabetes Father Stroke Grandmother Hypertension Social History (Updated 12/22/24 @ 05:22 by Eboni Berrios) Smoking Status: Former smoker tobacco type: cigarettes alcohol intake: never substance use type: denies use current occupational status: employed Travel in the last 8 weeks: None marital status: number of children: 2 Have you lived/traveled outside [place] in past 30 days?: No Contact w/someone who lives/traveled outside US past 30 days?: No Exposure to someone with infectious disease in past 14 days?: No Do you have a fever (greater than 100.4 F or 38 C)?: No Have you tested positive for COVID-19: No Exposed to someone with COVID-19 in past 14 days?: No Do you have a sore throat?: No Do you have a cough?: No Do you have any weakness?: No Do you have any diarrhea?: No Are you experiencing any unusual bleeding?: No Do you have any muscle aches/pain?: No Do you have any abdominal pain?: No Are you experiencing loss of taste or smell?: No Other Medical History Have you received the Flu Vaccine for this season: No Have you received the Pneumonia Vaccine: No Review of Systems Review of Systems Review of systems:: pertinent systems reviewed and negative unless documented below Meds Home Medications and Allergies Home Medications ?Medication ?Instructions ?Recorded ?Confirmed ?Type vits no.126-ferrous fum 1 tab PO DAILY 05/22/24 12/22/24 History 28 mg iron-folic acid 800 mcg tablet (Classic ) labetalol 100 mg tablet 100 mg PO BID #60 tabs 09/01/24 12/22/24 Rx magnesium 200 mg tablet 800 mg PO BID 09/01/24 12/22/24 History blood sugar diagnostic #100 ea 10/21/24 12/22/24 Rx lancets #200 ea 10/21/24 12/22/24 Rx cetirizine 10 mg capsule (Zyrtec) 10 mg PO DAILY #30 caps 11/05/24 12/22/24 Rx glyburide 5 mg tablet 5 mg PO DAILY #30 tabs 11/05/24 12/22/24 Rx pantoprazole 40 mg tablet,delayed 40 mg PO DAILY #30 tabs 11/19/24 12/22/24 Rx release (Protonix) New Prescriptions to Start Prescriptions: Allergies Allergy/AdvReac Type Severity Reaction Status Date / Time No Known Allergies Allergy Verified 12/15/24 09:33 OB - H&P: Exam Physical Exam Vital signs: Temp Pulse Resp BP Pulse Ox O2 Del Method 98.4 F 102 H 18 127/73 98 Room Air 12/22/24 06:24 12/22/24 06:24 12/22/24 06:24 12/22/24 06:24 12/22/24 06:24 12/22/24 06:24 Constitutional no acute distress and cooperative Routine HEENT Exam Head: Present normocephalic and atraumatic Eye: Absent conjunctivae pink ENT: Present mucous membranes moist Routine Neck Exam Present full ROM Routine Respiratory Exam Present CTA bilaterally and normal respiratory effort Routine Cardiovascular Exam Present RRR Routine Abdominal Exam Present soft (Gravid) Routine Rectal Exam Patient deferred: visual exam Routine Exam External: Present normal urethra appearance; Absent erythema, swelling, lesions or lacerations Routine Extremities Exam Present full ROM; Absent edema or calf tenderness Routine Neurological Exam Present alert, moving all extremities and normal speech Routine Psychiatric Exam Present normal affect and cooperative OB - Results Labs Labs: Short CBC 12/22/24 Range/Units 05:35 WBC 10.8 (4.8-10.8) K/mm3 Hgb 11.7 L (12.2-16.2) g/dL Hct 35.8 L (37.0-47.0) % Plt Count 158 (142-424) K/mm3 BMP 12/22/24 05:35 Sodium 135 L Potassium 4.4 Chloride 107 Carbon Dioxide 24 BUN 7 Creatinine 0.80 Glucose 82 Calcium 8.9 Urine 12/22/24 Range/Units 05:10 Urine Color Yellow (Yellow) Urine Appearance Clear (Clear) Urine pH 6.5 (5.0-8.5) Ur Specific [place] 1.010 (1.005-1.030) Urine Protein Negative (Negative) Urine Glucose (UA) Negative (Negative) OB - A/P Antepartum (1) 37 weeks gestation of : Status: Acute (2) GDM, class A2: Status: Acute (3) Maternal obesity affecting , antepartum: Status: Chronic (4) Episodic migraine: Problem details: History of episodic migraines since adolescence, nonfocal exam. Previous complicated with gestational hypertension. Trial with labetalol was discussed, recommended and approved by IRON GUARDRAIL INSTALLER. Status: Chronic (5) Hx of section: Problem details: x 2 Status: Acute (6) with history of uterine myomectomy: Status: Acute (7) History of gestational hypertension: Status: Resolved (8) Hx of gestational diabetes in prior , currently : Status: Acute Additional Plan Additional Information:: Admit to [facility] for scheduled repeat . Reviewed risks, benefits, alternatives, expectations and possible complications of surgery. All questions addressed and answered. She voiced understanding of risks and possible complications. Consent form signed. Proceed with surgery as scheduled
[2024-12-22 07:38] LABS: RPR W/RFX Titers Nonreactive (Nonreactive)
[2024-12-22 08:09] LABS: Cord Blood PH 7.28 (7.35-7.45)
--- NOTE | 2024-12-22 09:09 | EXP.ANES.CKL ---
[facility] Disclaimer: The information contained in this section may have been updated after the patient was seen, as this information can be updated by other users. Medical History echogenic intracardiac focus on ultrasound Polyhydramnios in third trimester GDM, class A2 Maternal obesity affecting , antepartum History of endometriosis with history of uterine myomectomy History of gestational hypertension Hx of gestational diabetes in prior , currently resulting from in-vitro fertilization Subchorionic hemorrhage PCOS (polycystic ovarian syndrome) Migraines Surgical History Hx of cholecystectomy Hx of section x 2 Family History Mother Diabetes Grandfather Diabetes Father Stroke Grandmother Hypertension Social History (Updated 12/22/24 @ 05:22 by Eboni Berrios) Smoking Status: Former smoker tobacco type: cigarettes alcohol intake: never substance use type: denies use current occupational status: employed Travel in the last 8 weeks: None marital status: number of children: 2 Have you lived/traveled outside US in past 30 days?: No Contact w/someone who lives/traveled outside US past 30 days?: No Exposure to someone with infectious disease in past 14 days?: No Do you have a fever (greater than 100.4 F or 38 C)?: No Have you tested positive for COVID-19: No Exposed to someone with COVID-19 in past 14 days?: No Do you have a sore throat?: No Do you have a cough?: No Do you have any weakness?: No Do you have any diarrhea?: No Are you experiencing any unusual bleeding?: No Do you have any muscle aches/pain?: No Do you have any abdominal pain?: No Are you experiencing loss of taste or smell?: No [facility] Anesthesia Checklist Patient Identification Patient Identification: Arm Band Structural Data Admitted From: Home Planned Operative Procedure/s: Repeat C/S Consent for Planned Operative Procedure(s) Verified: Yes Verified Documents: Surgical Consent and History and Physical NPO Status Verified Time NPO: 00:00 Additional verifications Anesthesia Reactions: No Airway Assessment Mallampati Score:: Class II C-Spine Mobility Assessed: Yes TMJ Mobility Assessed: Yes Dentition: Good Dentition Neurological Assessment Level of Consciousness: Awake, Alert and Appropriate Anesthesia Plan Anesthesia Risk discussed: Yes Anesthesia Plan: Verified ASA Class: II Anesthesia Type: Spinal (with Bilateral TAP Block. Risks/benefits explained. Pt verbalized understanding)
--- NOTE | 2024-12-22 09:10 | P.PNANES_ITS ---
[facility] Anesthesia Record Part I Anesthesia Record I Intake, IV Amount: 1,000 Hydration: Adequate Estimated blood loss (mL): 400 Urine output (mL): 500 Blood Products used (#): none Blood Pressure: 117/52 SaO2: 100 Pulse Rate: 71 Airway Patency: Patent Respiratory Rate: 16 Temperature: 98.2 F Patient is:: Awake and Stable Stable to PACU at:: 09:00
[2024-12-22] MEDS: PROMETHAZINE HCL 25MG/ML 1ML VIAL 12.5 MG IV (09:40)
--- NOTE | 2024-12-22 09:47 | EXP.OP.NOTE ---
Date of procedure: 12/22/24 Pre-op Diagnosis:: 1. IUP at 37w2d 2. GDMA2 3. Maternal obesity 4. Episodic migraine 5. History of x 2 6. History of myomectomy 7. Hx of gesational diabetes in prior Post-op Diagnosis:: 1. IUP at 37w2d 2. GDMA2 3. Maternal obesity 4. Episodic migraine 5. History of x 2 6. History of myomectomy 7. Hx of gesational diabetes in prior 8. Incidental cystotomy Procedure performed:: 1. Repeat Low Transverse Section 2. Repair of incidental cystotomy Surgeon:: Blanca Olivas DO Reservations Clerk(s):: Erasto Melo MD MULTIMEDIA MANAGER:: Chester Hull Anesthesia: spinal Estimated blood loss (mL): 400 Clinical Note:: Mrs Afua Hays is a 34 yo at 37w2d who presents to [facility] for scheduled repeat . complicated by GDMA2, maternal obestiy, history of x 2 and history of uterine myomectomy (Hx of endometriosis, stage 4, with excision of endometriosis, PCOS and fibroid uterus; history of myomectomy by [facility] in [place]). Last operative noted commented on dense adhesions between bowel and left side of uterus and ovary as well as bladder densely adhered. She is taking Glyburide 5 mg PO daily. She is also taking Labetalol 100 mg PO BID for episodic migraines. She has had good care. Baby is active. Operative findings:: 1. Dense adhesions between fascia and subcutaneous fat, bladder densely adhered between uterus and abdominal wall peritoneum. Dense adhesions between uterus and bowel laterally. Unable to see fallopian tubes and ovaries secondary to intrapelvic adhesions 2. Live female baby, Shira Maira, weighing 7 lb 7 oz. AGPARs 7 (1 min), 9 (5 min) Operative note:: The risks, benefits and alternatives of the procedure were reviewed with the patient. Informed consent was obtained. Patient was taken to the operating room where spinal anesthesia was placed. The patient received 2 grams of Ancef preoperatively. Patient was placed in dorsal supine position with a leftward tilt. SCDs in place. Lozano catheter was inserted and was draining clear urine prior to the start of the procedure. heart tones were obtained. Patient was then prepped and draped in normal sterile fashion. Allis clamp test was performed to ensure adequate anesthesia. A Pfannenstiel skin incision was made 2 cm above pubic symphysis along prior Pfannenstiel incision scar. This was carried through to underlying layer of fascia. Fascia was incised in midline, extended laterally with Yates scissors. Superior aspect of fascial incision was grasped with two Lulu clamps, elevated up, and rectus muscle dissected off bluntly and sharply with Yates scissors. Inferior aspect of fascial incision was grasped with two Lulu clamps, elevated up, and rectus muscle dissected off bluntly and sharply with Yates scissors. The retcus muscle was then in the midline and the peritoneum was entered bluntly with a digit. Peritoneal incision was then extended superiorly. Dense adhesions noted between bladder and uterus. Peritoneal incision was cautiously extended inferiorly. Incidental cystotomy was identified right away. Gregg retractor was inserted. The uterine incision was made above the lower uterine segment in a transverse fashion. Clear amniotic fluid was noted. Head was delivered without difficulty. Remainder of body was delivered without difficulty. Mouth and nares were bulb suctioned. Spontaneous cry was noted. Delayed cord clamping was performed for 60 seconds. The umbilical cord was clamped and cut. The infant was handed to awaiting pediatric staff in stable condition. Dr. Diallo was present. Apgars were 7(1 min), 9(5 min). Section of cord obtained for cord gases. Cord blood was obtained. Gentle traction on the umbilical cord and uterine fundal massage delivered the placenta. Placenta was intact. Placenta will be sent to pathology for review. Uterus was cleared of all clots and debris with a moist laparotomy sponge. Corners of the uterine incision were grasped with Allis clamps. The uterine incision was reapproximated with # 1 Vicryl suture in a running, locked stitch. Second layer of the same stitch was used to imbricate the incision. Hemostasis was noted. Gregg retractor was removed. Attention was turned to the bladder. Allis clamps x 2 were placed on corners of cystotomy. Bladder mucosa was reapproximated with 3-0 Vicryl in a running stitch. 2-0 Vicryl was used to imbricate the bladder fascia in a running stitch. Bladder was backfilled with normal saline and methylene blue. Bladder filled easily, no defect or leak. Reinspection of the lower uterine segment demonstrated small amount of oozing. Surgicel powder was applied over uterine incision. Hemostasis was noted. At this point all instruments and sponges were removed from the pelvis.? The densely adhered peritoneum luis armando rectus muscle was reapproximated with two interrupted stitches of 0 Vicryl. The corners of the fascia were grasped with Lulu clamps, and the fascia was reapproximated with two # 1 Vicryl suture overlapped to the right of midline. Subcutaneous tissue was irrigated with clear return of fluids. The subcutaneous tissue was reapproximated with 3-0 Vicryl. The skin was reapproximated with Insorb jamison. Telfa was placed over closed Pfannenstiel skin incision. At the end of the procedure, the uterus was firm with minimal vaginal bleeding. Patient tolerated the procedure well. Instrument, sponges and needle counts were correct x 2. Mom and baby were transported to recovery room in stable condition. Condition: stable Disposition: floor Specimens:: 1. Placenta and umbilical cord 2. Cord blood 3. Cord gases Complications:: Incidental cystotomy secondary to densely adhered bladder to lower uterine segment
[2024-12-22] MEDS: OXYTOCIN/RINGERS LACTATE 30 UNITS/500 ML BAG 40 UNITS IV (09:48)
[2024-12-22] MEDS: ACETAMINOPHEN 500MG TAB 1000 MG PO ×3 (09:52→21:02)
[2024-12-22 10:38] LABS: POC Glucose,Bedside 61 (70-110)
--- NOTE | 2024-12-22 10:42 | P.PNANES_ITS ---
[facility] Anesthesia Record Part II Anesthesia Record Part II Discharge Time: 09:30 Destination: Obstetric PACU nurse assessment reviewed?: Yes Patient Condition:: Good Anesthesia Complications:: None Swallowing reflex intact?: Yes Airway Patency: Patent Cyanosis?: No Blood Pressure: 127/61 SaO2: 100 Respiratory Rate: 18 Pulse Rate: 62 Temperature: 98.2 F Mental Status: Alert & Oriented Pain level:: 0 Nausea and/or vomitting:: None Intake, IV Amount: 0 Hydration: Adequate
[2024-12-22 14:41] LABS: Microscopic,Cath URINE MICROSCOPIC (MICROSCOPIC)
[2024-12-22] MEDS: KETOROLAC 30MG/ML VIAL 30 MG IV ×2 (14:59→21:02)
[2024-12-22 16:32] LABS: Appearance,Urine/Cath CLEAR (Clear); Bilirubin,Cath Negative (Negative); Blood, Urine/Cath Negative (Negative); Color,Urine/Cath YELLOW (Yellow); Glucose,Urine/Cath (UA) Negative (Negative); Ketones,Urine/Cath Negative (Negative); Leukocyte Esterase,Cath Negative (Negative); Nitrate,Cath Negative (Negative); Protein,Urine/Cath Negative (Negative); Specific Gravity, Urine/Cath 1.015 (1.005-1.030); Urobilinogen,Cath 0.2 EU/dl (0.2)
[2024-12-22 18:39] LABS: Squamous Epithelial Ur./Cath Occasional #/hpf (0-5)
[2024-12-22] MEDS: OXYCODONE 5MG IMMEDIATE RELEASE TABLET 5 MG PO (19:25)
[2024-12-22] MEDS: SIMETHICONE 80MG CHEWABLE TABLET 160 MG PO (21:02)
[2024-12-22] MEDS: SENNA 8.6MG TABLET 8.6 MG PO (21:03)
[2024-12-23] MEDS: KETOROLAC 30MG/ML VIAL 30 MG IV (03:37)
[2024-12-23] MEDS: ACETAMINOPHEN 500MG TAB 1000 MG PO ×4 (03:37→21:16)
[2024-12-23 03:41] VITALS: BP 146/62; PULSE 82; RESP 20; TEMP 37.1; O2SAT 99
[2024-12-23] MEDS: IBUPROFEN 400 MG TABLET 800 MG PO ×3 (03:55→20:08)
[2024-12-23 05:58] LABS: Basophils % 0.2 % (0.1-2.0); Eosinophils # 0.1 K/mm3 (0.0-0.4); Eosinophils % 0.5 % (0.1-12.0); Hematocrit 34.4 % (37.0-47.0); Hemoglobin 10.9 g/dL (12.2-16.2); Lymphocytes # 1.5 K/mm3 (0.7-4.5); Mean Corpuscular HGB Conc 31.7 g/dL (31.8-35.4); Mean Corpuscular Hemoglobin 27.9 pg (27.0-31.2); Mean Corpuscular Volume 88.2 fl (81-99); Mean Platelet Volume 13.7 fl (7.4-10.4); Monocytes # 0.5 K/mm3 (0.1-1.0); Monocytes % 4.6 % (1.7-9.3); Neutrophils # 9.2 K/mm3 (1.8-7.8); Neutrophils % 81.2 % (37.0-80.0); Platelet Count 128 K/mm3 (142-424); Red Cell Distribution Width 14.7 % (11.5-17.5); White Blood Count 11.3 K/mm3 (4.8-10.8)
[2024-12-23 06:07] LABS: Albumin Level 2.6 g/dl (3.5-5.0); Chloride 107 mmol/L (98-107); Potassium 4.2 mmoL/L (3.5-5.1); Sodium 136 mmol/L (136-145)
[2024-12-23 06:10] LABS: Alanine Aminotransferase 20 U/L (12-78); Alkaline Phosphatase 81 U/L (38-126); Anion Gap 8.2 mEq/L (5-15); Aspartate Amino Transferase 32 U/L (14-36); Bilirubin,Total 0.3 mg/dl (0.2-1.3); Blood Urea Nitrogen 7 mg/dl (7-17); Carbon Dioxide 25 mmol/L (22.0-30.0); Creatinine Clearance Estimated 86 mL/min (50-200); Estimated Glomerular Filt Rate 82 ml/min (>60); GFR (African American) 99 ML/MIN (>60); Globulin 2.7 g/dL (1.3-3.2); Total Protein,Serum 5.3 g/dl (6.3-8.2)
[2024-12-23 06:11] LABS: Calcium 8.8 mg/dl (8.4-10.2); Glucose 83 mg/dl (74-100)
[2024-12-23 08:30] VITALS: BP 139/75; PULSE 86; RESP 16; TEMP 36.7; O2SAT 99
[2024-12-23] MEDS: OXYCODONE 5MG IMMEDIATE RELEASE TABLET 5 MG PO ×2 (08:31→22:37)
--- NOTE | 2024-12-23 09:13 | EXP.ACUTE.PN ---
Subjective *Date: 12/23/24 *Time: 11:58 Interval history: POD # 1 s/p RLTCS with incidental cystotomy and repair Feeling well. Pain controlled. Formula feeding. Lochia is appropriate. Lozano catheter in place draining clear urine. Passing flatus. Tolerating regular diet. Denies fever/chills, chest pain and shortness of breath. No headaches, vision changes, lightheadedness/dizziness. No lower extremity swelling. Ambulating well ad comfort. Medical Exam Vital signs and Labs for Last 24 Hours: Vital Signs Temp Pulse Resp BP Pulse Ox O2 Del Method 12/23/24 03:41 98.7 F 82 20 146/62 H 99 Room Air 12/22/24 19:56 98.5 F 81 16 137/84 97 Room Air 12/22/24 10:43 18 12/22/24 09:30 98.2 F 62 18 127/61 100 Room Air 12/22/24 09:20 98.2 F 66 18 104/56 L 100 Room Air Intake and Output 12/22/24 12/23/24 12/23/24 23:59 07:59 15:59 Output Total 1300 / 1300 Balance -1300 / -1300 Output: Output, Urine Amount (Catheter) 1300 / 1300 Lozano 1300 / 1300 Laboratory Results - last 24 hr 12/22/24 05:35: Blood Type A Positive, Antibody Screen Negative, Crossmatch (AHG) See Detail 12/22/24 07:30: Urine Color Yellow, Urine Appearance Clear, Urine pH 7.0, Ur Specific Donnellson 1.015, Urine Protein Negative, Urine Glucose (UA) Negative, Urine Ketones Negative, Urine Blood Negative, Urine Nitrate Negative, Urine Bilirubin Negative, Urine Urobilinogen 0.2, Ur Leukocyte Esterase Negative, Urine RBC None, Urine WBC None, Ur Squamous Epith Cells Occasional, Urine Bacteria None 12/22/24 09:15: POC Glucose 61 L 12/23/24 05:07: WBC 11.3 H, RBC 3.90 L, Hgb 10.9 L, Hct 34.4 L, MCV 88.2, MCH 27.9, MCHC 31.7 L, RDW 14.7, Plt Count 128 L, MPV 13.7 H, Neut % (Auto) 81.2 H, Lymph % (Auto) 13.0, Mcculloch % (Auto) 4.6, Eos % (Auto) 0.5, Baso % (Auto) 0.2, Neut # (Auto) 9.2 H, Lymph # (Auto) 1.5, Mcculloch # (Auto) 0.5, Eos # (Auto) 0.1, Baso # (Auto) 0.0, Sodium 136, Potassium 4.2, Chloride 107, Carbon Dioxide 25, Anion Gap 8.2, BUN 7, Creatinine 0.80, Estimated Creat Clear 86, Estimated GFR 82, Est GFR ( Amer) 99, Glucose 83, Calcium 8.8, Total Bilirubin 0.3, AST 32, ALT 20, Alkaline Phosphatase 81, Total Protein 5.3 L, Albumin 2.6 L, Globulin 2.7, Albumin/Globulin Ratio 1.0 L I & O for Labs for Last 24 Hours: Intake & Output 12/20/24 12/21/24 12/22/24 12/23/24 23:59 23:59 23:59 23:59 Intake Total 1000 / 1000 Output Total 1300 / 1300 Balance 1000 / 1000 -1300 / -1300 Weight 255 lb Head: Present atraumatic and normocephalic ENT: Present normal exam Neck: Present normal inspection and full ROM Respiratory: Present CTA bilaterally and normal respiratory effort Cardiac: Present Reg Rate and Rhythm GI: Present soft and normal bowel sounds; Absent tenderness Comments:: Pfannenstiel incision clean/dry/intact with steri strips in place Rectal (female): Present deferred (female): Present deferred Extremities: Present full ROM; Absent edema or calf tenderness Neuro: Present alert, awake and moves all extremities Assessment and Plan *Assessment and plan (1) S/P : Status: Acute Category: Surgical Code(s): Z98.891 - History of uterine scar from previous surgery (2) GDM, class A2: Status: Acute Category: Medical Code(s): O24.419 - Gestational diabetes mellitus in , unspecified control (3) Maternal obesity affecting , antepartum: Status: Chronic Qualifiers: Obesity type affecting : unspecified obesity Qualified Code(s): O99.210 - Obesity complicating , unspecified trimester Category: Medical Code(s): O99.210 - Obesity complicating , unspecified trimester (4) Episodic migraine: Problem Comment: History of episodic migraines since adolescence, nonfocal exam. Previous complicated with gestational hypertension. Trial with labetalol was discussed, recommended and approved by SPINNING SUPERVISOR. Status: Chronic Category: Medical Code(s): G43.909 - Migraine, unspecified, not intractable, without status migrainosus (5) with history of uterine myomectomy: Status: Acute Category: Medical Code(s): O34.29 - Maternal care due to uterine scar from other previous surgery (6) Hx of section: Problem Comment: x 2 Status: Acute Category: Surgical Code(s): Z98.891 - History of uterine scar from previous surgery (7) History of gestational hypertension: Status: Resolved Category: Medical Code(s): Z87.59 - Personal history of other complications of , childbirth and the puerperium Plan Continue routine care Encouraged increased ambulation AM Hgb 10.9 Plan d/c home tomorrow
[2024-12-23] MEDS: PRENATAL MULTIVITAMIN W/IRON 1 EACH PO (16:26)
[2024-12-23 20:16] VITALS: BP 139/80; PULSE 91; RESP 17; TEMP 36.9; O2SAT 98
[2024-12-23] MEDS: NITROFURANTOIN 100MG CAPSULE 100 MG PO (21:16)
[2024-12-23] MEDS: SENNA 8.6MG TABLET 8.6 MG PO (22:37)
[2024-12-24] MEDS: ACETAMINOPHEN 500MG TAB 1000 MG PO (05:21)
[2024-12-24] MEDS: IBUPROFEN 400 MG TABLET 800 MG PO (05:21)
[2024-12-24 05:28] VITALS: BP 133/76; PULSE 78; RESP 17; TEMP 36.9; O2SAT 96
[2024-12-24] MEDS: NITROFURANTOIN 100MG CAPSULE 100 MG PO (08:30)
--- NOTE | 2024-12-24 09:28 | EXP.DC.SUM ---
General Admission date:: 12/22/24 Discharge date: 12/24/24 HPI HPI HPI: POD # 2 s/p RLTCS with incidental cystotomy and repair Feeling well. Pain controlled. Formula feeding. Lochia is light. Lozano catheter in place draining clear urine. Passing flatus. Tolerating regular diet. Denies fever/chills, chest pain and shortness of breath. No headaches, vision changes, lightheadedness/dizziness. No lower extremity swelling. Ambulating well ad comfort. Hospital Course Hospital Course Hospital Course: Mrs Afua Hays is a 34 yo at 37w2d who presents to [facility] for scheduled repeat . complicated by GDMA2, maternal obestiy, history of x 2 and history of uterine myomectomy (Hx of endometriosis, stage 4, with excision of endometriosis, PCOS and fibroid uterus; history of myomectomy by [facility] in [place]). Last operative noted commented on dense adhesions between bowel and left side of uterus and ovary as well as bladder densely adhered. She is taking Glyburide 5 mg PO daily. She is also taking Labetalol 100 mg PO BID for episodic migraines. She has had good care. She underwent repeat low transverse section with incidental cystotomy and cystotomy repair on 12/22/24. There were dense adhesions between fascia and subcutaneous fat, bladder densely adhered between uterus and abdominal wall peritoneum. Dense adhesions between uterus and bowel laterally. Unable to see fallopian tubes and ovaries secondary to intrapelvic adhesions. She delivered a live female baby, Shira Maira, weighing 7 lb 7 oz. AGPARs 7 (1 min), 9 (5 min). EBL 400 mL. She did well /postoperatively. Pain controlled. Formula feeding. Light lochia. Lozano catheter in place. Passing flatus. Tolerating regular diet. Denies fever/chills, chest pain and shortness of breath. No headaches, dizziness/lightheadedness or vision changes. Vital signs stable, afebrile. Heart regular rate and rhythm. Lungs clear to auscultation. Abdomen soft, nontender. No lower extremity swelling. Ambulating well ad comfort. Normal hospital course. She was discharged to home on POD # 2 with instructions to follow-up in the office on 01/01 for postop visit and catheter removal. Exam Data for Last 24 hours Vital signs and Labs for Last 24 Hours: Temp Pulse Resp BP Pulse Ox O2 Del Method 98.5 F 78 17 133/76 96 Room Air 12/24/24 05:28 12/24/24 05:28 12/24/24 05:28 12/24/24 05:28 12/24/24 05:28 12/24/24 05:28 I & O for Last 24 hours: Intake & Output 12/21/24 12/22/24 12/23/24 12/24/24 23:59 23:59 23:59 23:59 Intake Total 1000 / 1000 Output Total 1300 / 1300 Balance 1000 / 1000 -1300 / -1300 Weight 255 lb Constitutional Constitutional: no acute distress and cooperative *Routine HEENT Exam Head: Present normocephalic and atraumatic Eye: Absent conjunctivae pink ENT: Present mucous membranes moist *Routine Neck Exam Neck: Present full ROM *Routine Respiratory Exam Respiratory: Present CTA bilaterally and normal respiratory effort *Routine Cardiovascular Exam Cardiovascular: Present RRR *Routine Abdominal Exam Abdominal: Present soft and normoactive bowel sounds; Absent tenderness Comments: Pfannenstiel incision clean/dry/intact *Routine Rectal Exam Patient deferred: visual exam *Routine Exam Patient deferred: external exam *Routine Extremities Exam Extremities: Present full ROM; Absent edema or calf tenderness *Routine Neurological Exam Neurological: Present alert, moving all extremities and normal speech Routine Psychiatric Exam Psychiatric: Present normal affect and cooperative DS: Diagnosis Discharge Diagnosis (1) S/P : Status: Acute Code(s): Z98.891 - History of uterine scar from previous surgery (2) GDM, class A2: Status: Acute Code(s): O24.419 - Gestational diabetes mellitus in , unspecified control (3) Maternal obesity affecting , antepartum: Status: Chronic Code(s): O99.210 - Obesity complicating , unspecified trimester Qualifiers: Obesity type affecting : unspecified obesity Qualified Code(s): O99.210 - Obesity complicating , unspecified trimester (4) Episodic migraine: Status: Chronic Code(s): G43.909 - Migraine, unspecified, not intractable, without status migrainosus Problem details: History of episodic migraines since adolescence, nonfocal exam. Previous complicated with gestational hypertension. Trial with labetalol was discussed, recommended and approved by DRUM DYEING MACHINE OPERATOR. (5) with history of uterine myomectomy: Status: Acute Code(s): O34.29 - Maternal care due to uterine scar from other previous surgery (6) Hx of section: Status: Acute Code(s): Z98.891 - History of uterine scar from previous surgery Problem details: x 2 (7) History of gestational hypertension: Status: Resolved Code(s): Z87.59 - Personal history of other complications of , childbirth and the puerperium Meds Home Medications and Allergies Home Medications ?Medication ?Instructions ?Recorded ?Confirmed ?Type vits no.126-ferrous fum 1 tab PO DAILY 05/22/24 12/22/24 History 28 mg iron-folic acid 800 mcg tablet (Classic ) labetalol 100 mg tablet 100 mg PO BID #60 tabs 09/01/24 12/22/24 Rx magnesium 200 mg tablet 800 mg PO BID 09/01/24 12/22/24 History blood sugar diagnostic #100 ea 10/21/24 12/22/24 Rx lancets #200 ea 10/21/24 12/22/24 Rx cetirizine 10 mg capsule (Zyrtec) 10 mg PO DAILY #30 caps 11/05/24 12/22/24 Rx pantoprazole 40 mg tablet,delayed 40 mg PO DAILY #30 tabs 11/19/24 12/22/24 Rx release (Protonix) ibuprofen 800 mg tablet 800 mg PO Q8H PRN pain #20 tabs 12/24/24 Rx nitrofurantoin macrocrystal 100 mg 100 mg PO BID #16 caps 12/24/24 Rx capsule oxycodone 5 mg tablet 5 mg PO Q4HP PRN Moderate Pain 12/24/24 Rx (4-6) #20 tabs New Prescriptions to Start Prescriptions: ibuprofen Blanca Olivas nitrofurantoin macrocrystal Blanca Olivas oxycodone Blanca Olivas Allergies Allergy/AdvReac Type Severity Reaction Status Date / Time No Known Allergies Allergy Verified 12/15/24 09:33 Discharge Plan Disposition Patient Disposition: Home, Self-Care Condition: Good Discharge Order Discharge Orders: Discharge Order (Routine); Ordered 12/24/24 Ordered By: Blanca Olivas Follow up Plan Follow up with: Blanca Olivas DO [Staff Physician] - 01/01/25 2:45 pm Prescriptions/Medication Reconciliation: New nitrofurantoin macrocrystal 100 mg Capsule 100 mg PO BID Qty: 16 0RF oxycodone 5 mg Tablet 5 mg PO Q4HP PRN (Reason: Moderate Pain (4-6)) Qty: 20 0RF ibuprofen 800 mg tablet 800 mg PO Q8H PRN (Reason: pain) Qty: 20 0RF Continued Classic 28 mg iron- 800 mcg tablet 1 tab PO DAILY magnesium 200 mg tablet 800 mg PO BID labetalol 100 mg tablet 100 mg PO BID Qty: 60 3RF (DME) blood sugar diagnostic Strip See Rx Instructions .Route Qty: 100 2RF Rx Instructions: 4x daily (DME) lancets Misc See Rx Instructions .Route Qty: 200 0RF Rx Instructions: 4x daily Zyrtec 10 mg capsule 10 mg PO DAILY Qty: 30 3RF pantoprazole [Protonix] 40 mg tablet,delayed release (DR/EC) 40 mg PO DAILY Qty: 30 2RF Discontinued glyburide 5 mg tablet 5 mg PO DAILY Qty: 30 3RF Problem Reconciliation Problems Reviewed?: Yes Patient Discharge Instructions ACTIVITY: Limited activity DIET: continue same diet and regular diet Additional Instructions: Congratulations!! Discharge: 1. Take 800 mg Ibuprofen every 8 hours as needed for pain. You can also take 500-1000 mg of Tylenol in between doses, every 6-8 hours. If pain persists you can take Oxycodone 5 mg, 1 tablet every 4-6 hours or more as needed. 2. Nothing in the vagina for 6 weeks - no intercourse, douching or tampons. No tub baths/hot tubs or swimming pools - Drink plenty of fluids. - No strenuous activity or driving until released by your doctor. - Don't lift anything heavier than your in the pumpkin seat. 3. Reasons to return to L&D or call On-Call doctor - fever (greater than 100.4) - heavy vaginal bleeding (soaking through 1 pad in less than 2 hours) - vaginal discharge (malodorous and/or purulent) - severe headaches not resolved by medication or rest and leg tenderness/edema 4. depression/blues - Normal to feel anxious/overwhelmed for first 2 weeks - Talk to your doctor if: severe anxiety, trouble bonding with baby, withdrawing from other family members, thoughts of harming yourself or others Blanca Olivas DO [facility] [place] [phone] Patient Instructions: Depression, Hemorrhage, DI for , DI for Pre-eclampsia, How to Care for Your Lozano Catheter -- Female, Catheter-Associated Urinary Tract Infection, [facility] Post Discharge Instructions Print Language: Nepalese Providers Primary Care Provider: Mele Perry Admit Provider: Blanca Olivas Attending Provider: Blanca Olivas
== END 2024-12-24 10:49 | disposition home or self-care (01) | DRG 787 ==
PROVIDERS: Admitting Provider Obstetrics & Gynecology; PCP Family Medicine; Visit Provider Obstetrics & Gynecology
PROC: 10D00Z1 Extraction of Products of Conception, Low, Open Approach (ICD-10-PCS; CPT 59514; principal; 2024-12-22 07:30)
DX: O34.211 Maternal care for low transverse scar from previous cesarean delivery (principal); N99.72 Accidental puncture and laceration of a genitourinary system organ or structure during other procedure; O24.425 Gestational diabetes mellitus in childbirth, controlled by oral hypoglycemic drugs; Z3A.37 37 weeks gestation of pregnancy; O99.214 Obesity complicating childbirth; E66.9 Obesity, unspecified; N85.8 Other specified noninflammatory disorders of uterus; Z37.0 Single live birth
CPT/HCPCS: 36415; 59025; 80048; 80053; 81001; 82800; 82962; 85025; 86592; 86850; J0666; J1885; J2405; J2550; J3010; J7120

== ENCOUNTER 2025-06-03 10:35 | Outpatient (CLI) | payer OTHER, SELFPAY ==
[2025-06-03 14:30] LABS: Hemoglobin A1C 5.1 % (4.0-6.0)
[2025-06-03 15:00] LABS: Alanine Aminotransferase 23 U/L (12-78); Albumin Level 4.1 g/dl (3.5-5.0); Albumin/Globulin Ratio 1.8 (1.1-1.8); Alkaline Phosphatase 55 U/L (38-126); Anion Gap 12.6 mEq/L (5-15); Aspartate Amino Transferase 21 U/L (14-36); Bilirubin,Total 0.5 mg/dl (0.2-1.3); Blood Urea Nitrogen 8 mg/dl (7-17); Calcium 9.1 mg/dl (8.4-10.2); Carbon Dioxide 27 mmol/L (22.0-30.0); Chloride 104 mmol/L (98-107); Creatinine,Serum 0.80 mg/dl (0.52-1.04); Estimated Glomerular Filt Rate 82 ml/min (>60); GFR (African American) 99 ML/MIN (>60); Globulin 2.3 g/dL (1.3-3.2); Glucose 75 mg/dl (74-100); Magnesium 1.9 mg/dl (1.6-2.3); Potassium 4.6 mmoL/L (3.5-5.1); Sodium 139 mmol/L (136-145); Total Protein,Serum 6.4 g/dl (6.3-8.2); Uric Acid 4.7 mg/dl (2.5-6.2)
[2025-06-03 15:10] LABS: 25-OH Vitamin D, Total 35.8 ng/mL (30-100)
[2025-06-03 15:17] LABS: T4 (Thyroxine) 9.6 ug/dl (5.53-11.0)
[2025-06-03 15:30] LABS: Thyroid Stimulating Hormone 1.68 uIU/mL (0.465-4.68)
[2025-06-03 15:49] LABS: Vitamin B12 215 pg/mL (239-931)
[2025-06-03 16:58] LABS: Ferritin 10.4 ng/ml (6.24-137)
--- OUTSIDE RECORDS SUMMARY | 2025-06-04 10:17 | XMS_ITS | Encounter Summary ---
Author Organization [facility] Address [address] [place] [id number] Care Team Providers Care Upkeep Mechanic Name Role Phone Mele Perry MD Primary Care Provider + Reason for Visit * Reason Comments Med Refill Encounter Details Date Type Department Care Team (Late st Contact Info) Description 05/04/2025 Refill [facility] [address] [place] [address] Mele Perry MD [address] [facility] [place] [address] Social History Tobacco Use Types Packs/Day Years Used Date Smoking Tobacco: Never Smokeless Tobacco: Never Alcohol Use Standard Drinks/Week Comments Not Currently 0 (1 standard drink = 0.6 oz pur e alcohol) rare PHQ-2 Answer Date Recorded Retired PHQ-9: Brief Depression Severity Measure Score 0 04/03/2024 Comments No Sex and Gender Information Value Date Recorded Sex Assigned at Female 11/06/2024 9:26 AM EST Legal Sex Female 4:46 PM EDT Gender Identity Not on file Sexual Orientation Straight 11/06/2024 9: 26 AM EST documented as of this encounter Plan of Treatment Not on file documented as of this encounter Visit Diagnoses Not on filedocumented in this encounter Care Teams Upkeep Mechanic Relationship Specialty Start Date End Date Mele Perry MD [address] [facility] [place] [address] PCP - General Family Medicine 11/07/24 documented as of this encounter
--- OUTSIDE RECORDS SUMMARY | 2025-06-04 10:17 | XMS_ITS | Clinical Summary ---
Author Organization [facility] Address [address] [place] [address] Care Team Providers Care Technical Illustrator Name Role Phone Mele Perry MD Primary Care Provider + Allergies No known active allergies Medications cetirizine (zyrTEC) 10 MG tablet Take 1 tablet by mouth Daily. 11/05/2024 Active glyburide (DIAbeta) 5 MG tablet Take 1 tablet by mouth Daily. 11/05/2024 Active magnesium oxide (MAG-OX) 400 MG tablet Take 2 tablets by mouth 2 (Two) Times a Day. Active Vit-Fe Fumarate-FA ( vitamin 27-0.8) 27-0.8 MG tablet tablet Take 1 tablet by mouth Daily. Active labetalol (NORMODYNE) 100 MG tablet TAKE ONE TABLET BY MOUTH TWICE DAILY 60 tablet 11 05/05/2025 Active Active Problems Problem Noted Date Diagnosed Date Gestational diabetes mellitu s (GDM) controlled on oral hypoglycemic drug, antepartum 11/12/2024 Assessment & Plan (11/12/2024 2:48 PM EST): Patient is currently taking Glyburide 5mgs qam. She reports that her fastings are 75-92 and her post-prandial values are 83-110's. - Follow-up scheduled in 4wks for growth assessment History of endometriosis 04/03/2024 Hx of section 04/03/2024 Assessment & Plan (11/12/2024 2:49 PM EST): Reports dense adhesions with last . 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 Encounters Date Type Department Care Team Description 05/04/2025 Refill [facility] [address] [place] [address] Mele Perry MD from Last 3 Months Family History Medical History Relation Name Comments Aneurysm Father Stroke Father Aneurysm Paternal Grandmother Cancer Paternal Grandmother Lung Ca ncer Relation Name Status Comments Father Paternal Grandmother Social History Tobacco Use Types Packs/Day Years Used Date Smoking Tobacco: Never Smokeless Tobacco: Never Tobacco Cessation:Counseling Given: Not Answered Alcohol Use Standard Drinks/Week Comments Not Currently [...] Orientation Straight 11/06/2024 9: 26 AM EST Last Filed Vital Signs Vital Sign Reading Time Taken Comments Blood Pressure 121/72 11/07/2024 8:02 AM EST Pulse 114 07/07/2024 3:29 PM EDT Temperature 36.8 C (98.2 F) 07/07/2024 3:29 PM EDT Respiratory Rate 20 07/07/2024 3:29 PM EDT Oxygen Saturation 98% 07/07/2024 3:29 PM EDT Inhaled Oxygen Concentration - - Weight 111 kg (244 lb) 11/07/2024 8:02 AM EST Height 160 cm (5' 3 ) 11/07/2024 8:06 AM EST Body Mass Index 43.22 11/07/2024 8:02 AM EST Plan of Treatment Health Maintenance Due Date Last Done Comments Annual Gynecologic Pelvic an d Breast Exam 1990 ANNUAL PHYSICAL 07/11/2017 HEPATITIS C SCREENING 07/11/2017 COVID-19 Vaccine (1 - 2023-2 5 season) 2025 INFLUENZA VACCINE 06/17/2025 PAP SMEAR 03/26/2027 03/26/2024 (Patient-Reported (Performed Externally)) TDAP/TD VACCINES (2 - Td or Tdap) 10/23/2034 10/23/2024 Pneumococcal Vaccine 0-49 Aged Out No longer eligible based on patient's age to complete this topic Insurance [employer] Care Teams Technical Illustrator Relationship Specialty Start Date End Date Mele Perry MD [facility] [place] [address] PCP - General Family Medicine 11/07/24
[2025-06-05 05:23] LABS: RA Latex Turbid. <10.0 IU/mL (<14.0)
[2025-06-05 06:33] LABS: Cytomegalovirus (CMV) Ab, IgG >10.00 U/mL (0.00-0.59); Cytomegalovirus (CMV) Ab, IgM <30.0 AU/mL (0.0-29.9)
[2025-06-05 08:33] LABS: Testosterone,Total 50 ng/dL (8-60); Triiodothyronine (T3) Free 4.0 pg/mL (2.0-4.4)
[2025-06-05 15:13] LABS: EBV Nuclear Antigen Ab, IgG >600.0 U/mL (0.0-17.9)
== END 2025-06-03 23:59 | disposition home or self-care (01) ==
LOC: LAB.DROPOF 06-04 10:13
PROVIDERS: PCP Nurse Practitioner Family; Visit Provider Nurse Practitioner Family
DX: D64.9 Anemia, unspecified (principal); E28.2 Polycystic ovarian syndrome; M25.50 Pain in unspecified joint; G43.909 Migraine, unspecified, not intractable, without status migrainosus; Z86.32 Personal history of gestational diabetes
CPT/HCPCS: 80053; 82306; 82607; 82670; 82728; 83036; 83735; 84144; 84403; 84436; 84443; 84481; 84550; 85651; 86038; 86376; 86431; 86644; 86645; 86664; 86665; 86800

== ENCOUNTER 2025-07-06 08:12 | Outpatient (CLI) | payer OTHER, SELFPAY ==
--- OUTSIDE RECORDS SUMMARY | 2025-07-06 08:20 | XMS_ITS | Clinical Summary ---
Author Organization [facility] Address [address] [place] [address] Care Team Providers Care Insulation Inspector Name Role Phone Mele Perry MD Primary [...] (07/12/2017): Added automatically from request for surgery [id number] Assessment & Plan (11/12/2024 2:46 PM EST): Patient is s/p multiple imaging studies and consult with Neurosurgery and this has been deemed to be a normal variant in vessel size and not an AVM. Encounters Date Type Department Care Team Description 05/04/2025 Refill [facility] [address] [place] [...] ANNUAL PHYSICAL 07/11/2017 HEPATITIS C SCREENING 07/11/2017 INFLUENZA VACCINE 04/17/2025 PAP SMEAR 03/26/2027 03/26/2024 (Patient-Reported (Performed Externally)) TDAP/TD VACCINES (2 - Td or Tdap) 10/23/2034 10/23/2024 Pneumococcal Vaccine 0-49 Aged Out No longer eligible based on patient's age to complete this topic Insurance [employer] Care Teams Insulation Inspector Relationship Specialty Start Date End Date Mele Perry MD [address] [facility] [place] [address] PCP - General Family Medicine 11/07/24
--- NOTE | 2025-07-06 08:30 | MR_ITS ---
FINAL REPORT TECHNIQUE: Multiplanar MR without contrast CLINICAL HISTORY: worsening headaches hx of migraine headaches for years FINDINGS: Diffusion sequences show no signal abnormality to indicate acute infarct. No mass, hemorrhage or edema is seen. Ventricles are normal. Major vascular flow voids are intact. IMPRESSION: Unremarkable MR of the brain without contrast Reviewed, Interpreted and Dictated by Feliciano Lopez MD Transcribed by Leonie Cruz Authenticated and [facility]
--- NOTE | 2025-07-06 09:15 | MR_ITS ---
FINAL REPORT TECHNIQUE: Multiple projection images of the brain and venous vasculature was performed with and without contrast. The raw data images were also reviewed. CLINICAL HISTORY: worsening headaches hx of migraines headaches for years FINDINGS: The superior sagittal sinus and right transverse sinus is patent without filling defect. Sigmoid sinuses patent. No venous abnormality is identified. IMPRESSION: No evidence of dural venous sinus thrombosis. Reviewed, Interpreted and Dictated by Feliciano Lopez MD Transcribed by Leonie Cruz Authenticated and [facility]
[2025-07-06] MEDS: SODIUM CHLORIDE 0.9% 10ML SYR (RAD ONLY) 10 ML IV (09:24)
[2025-07-06] MEDS: GADOTERIDOL INJ 20ML SYRINGE 20 ML IV (09:24)
[2025-07-06] MEDS: 0.9 % SODIUM CHLORIDE 50 ML VIAL 20 ML IV (09:24)
== END 2025-07-06 23:59 | disposition home or self-care (01) ==
LOC: RAD 08:13
PROVIDERS: PCP Nurse Practitioner Family; Visit Provider Specialist
DX: G08 Intracranial and intraspinal phlebitis and thrombophlebitis (principal); G93.2 Benign intracranial hypertension
CPT/HCPCS: 70546; 70551; A9576

== ENCOUNTER 2025-07-31 07:16 | Day surgery (SDC) | payer OTHER, SELFPAY ==
[2025-07-31 07:25] VITALS: BP 107/72; PULSE 84; RESP 16; O2SAT 96; BMI 39.8
[2025-07-31 07:42] VITALS: BP 131/70; PULSE 69; RESP 18; O2SAT 100
[2025-07-31 07:43] VITALS: BP 131/70; PULSE 69; RESP 18; O2SAT 100
[2025-07-31 07:52] VITALS: BP 136/69; PULSE 73; RESP 16; O2SAT 96
[2025-07-31] MEDS: LIDOCAINE 1% 30ML PF VIAL 30 ML (07:58)
--- NOTE | 2025-07-31 08:00 | PC.NURSE ---
pt laying back in recliner, gatorade given to pt, lights on in room for comfort. Pt did report headache has worsened from prior to procedure. After care handout copy given to patient to be taken home. Instructions gone over pre-procedure with pt.
[2025-07-31 08:20] VITALS: BP 133/67; PULSE 65; RESP 16; O2SAT 99
--- NOTE | 2025-07-31 08:20 | PC.NURSE ---
pt reports headache pain 6/10 at this time. Denies dizziness. Pt education again about resting, laying flat if possible for the rest of today. Drinking caffeine and plenty of water and/or gatorade. Pt to call office for any issues, if it after hours pt education to call the corn sheller operator and have them page Dr. Arora. Pt is to follow up with Dr. Cordero for procedure results. Pt verbalized understanding of all. Walked pt to the lobby where her ride was.
[2025-07-31 08:32] VITALS: BP 115/76; PULSE 61; RESP 16; O2SAT 97
--- NOTE | 2025-07-31 08:33 | PC.NURSE ---
pt reports headache has improved, rating pain 5/10 at this time. Pt states no needs at this time
[2025-07-31 08:59] LABS: Volume,CSF 20.5 mL
[2025-07-31 09:00] LABS: Volume,CSF 20.5 mL
[2025-07-31 09:02] LABS: White Blood Cell,CSF 3 cells/uL (0-5)
[2025-07-31 09:03] LABS: White Blood Cell,CSF 2 cells/uL (0-5)
[2025-07-31 09:06] LABS: Tube Number: Tube 1; Tube Number: Tube 3
--- NOTE | 2025-07-31 09:08 | EXP.HP ---
History of Present Illness *Admission Date: 07/31/25 *Reason for visit:: Lumbar puncture *History of present illness: This patient is referral from Dr. Cordero for lumbar puncture for assessment of CSF leak as headaches [facility] Disclaimer: The information contained in this section may have been updated after the patient was seen, as this information can be updated by other users. Medical History (Updated 07/31/25 @ 09:11 by Kun Arora MD) Pseudotumor cerebri syndrome Benign intracranial hypertension 37 weeks gestation of echogenic intracardiac focus on ultrasound Polyhydramnios in third trimester GDM, class A2 Maternal obesity affecting , antepartum History of endometriosis with history of uterine myomectomy History of gestational hypertension Hx of gestational diabetes in prior , currently resulting from in-vitro fertilization Subchorionic hemorrhage PCOS (polycystic ovarian syndrome) Migraines Surgical History S/P Hx of cholecystectomy Hx of section Family History Mother Diabetes Grandfather Diabetes Father Stroke Grandmother Hypertension Social History Smoking Status: Never smoker alcohol intake: current alcohol intake frequency: holidays/special occasions only substance use type: denies use current occupational status: employed Travel in the last 8 weeks?: None marital status: number of children: 2 Have you lived/traveled outside US in past 30 days?: No Contact w/someone who lives/traveled outside US past 30 days?: No Exposure to someone with infectious disease in past 14 days?: No Do you have a fever (greater than 100.4 F or 38 C)?: No Have you tested positive for COVID-19?: No Exposed to someone with COVID-19 in past 14 days?: No Do you have a sore throat?: No Do you have a cough?: No Do you have any weakness?: No Do you have any diarrhea?: No Are you experiencing any unusual bleeding?: No Do you have any muscle aches/pain?: No Do you have any abdominal pain?: No Are you experiencing loss of taste or smell?: No Other Medical History Have you received the Flu Vaccine for this season: No Have you received the Pneumonia Vaccine: No Meds Home Medications and Allergies Home Medications ?Medication ?Instructions ?Recorded ?Confirmed ?Type magnesium 200 mg tablet 800 mg PO BID 09/01/24 07/31/25 History cetirizine 10 mg tablet See Rx Instructions .Route 04/02/25 07/31/25 Rx .COMPLEX #30 tabs atogepant 60 mg tablet (Qulipta) 60 mg PO DAILY #30 tabs 07/08/25 07/31/25 Rx rimegepant 75 mg disintegrating 75 mg PO ONCE PRN migraine 07/08/25 07/31/25 Rx tablet (Nurtec ODT) headache #8 tabs New Prescriptions to Start Prescriptions: Allergies Allergy/AdvReac Type Severity Reaction Status Date / Time No Known Allergies Allergy Verified 07/24/25 14:45 Exam Data for Last 24 hours Vital signs and Labs for Last 24 Hours: Pulse Resp BP Pulse Ox O2 Del Method 61 16 115/76 97 Room Air 07/31/25 08:32 07/31/25 08:32 07/31/25 08:32 07/31/25 08:32 07/31/25 08:32 Laboratory Results - last 24 hr 07/31/25 07:40: CSF Mononuclear WBCs % TNP 07/31/25 07:40: CSF Mononuclear WBCs % TNP, CSF Polynuclear WBCs % TNP 07/31/25 07:40: CSF Polynuclear WBCs % TNP I & O for Last 24 hours: Intake & Output 07/28/25 07/29/25 07/30/25 07/31/25 11:59 11:59 11:59 11:59 Weight 232 lb *Routine HEENT Exam Head: Present normocephalic Eye: Present EOMI ENT: Present mucous membranes moist *Routine Respiratory Exam Respiratory: Present CTA bilaterally *Routine Cardiovascular Exam Cardiovascular: Present RRR, Normal S1 and Normal S2 *Routine Abdominal Exam Abdominal: Present soft *Routine Rectal Exam Rectal:: deferred *Routine Genitalia Exam Genitalia:: deferred Assessment and Plan *Assessment and plan (1) Benign intracranial hypertension: Status: Suspected Category: Medical Code(s): G93.2 - Benign intracranial hypertension (2) Intractable headache: Problem Comment: Chronic intractable headache, worsening following delivery 8 months ago Status: Chronic Qualifiers: Headache type: unspecified Headache chronicity pattern: chronic headache Qualified Code(s): R51.9 - Headache, unspecified; G89.29 - Other chronic pain Category: Medical Code(s): R51.9 - Headache, unspecified Plan Lumbar puncture
--- NOTE | 2025-07-31 09:11 | EXP.PAIN.PRO ---
Procedure Date: 07/31/25 Time: 09:11 Anesthesiologist:: Kun Arora MD Complications:: None Pre-procedure Diagnosis:: Increased intracranial pressure with chronic headaches Post-procedure Diagnosis:: Same Indications for Procedure:: This patient is referred from Dr. Cordero for diagnostic lumbar puncture to obtain CSF and studies because of the chronic headaches and evaluation increased intracranial pressure Procedure Details:: Informed consent was obtained risk and benefits of the procedure explained to the patient. Patient was taken to the procedure room placed in a left lateral cubitus position. She was prepped in sterile fashion. C-arm fluoroscopy was used to view the L4-L5 interspace. The skin and subcutaneous tissues were anesthetized using lidocaine. A 20-gauge spinal needle was inserted and advanced into the L4-5 interspace until clear CSF was obtained. After this opening pressures were taken that were found to be 24 cm of water. We obtained approximately 20 mL of clear CSF that was placed into 4 tubes. Closing pressures were found to be 12 cm of water. The needle was withdrawn a Band-Aid was placed patient was taken recovery in stable condition. We did career placement services counselor her on conservative treatments for postdural puncture headache. Patient was discharged home neurologically intact. Plan and Disposition:: Will follow-up with this patient as needed. We will send her back to Dr. Cordero for evaluation. We will send CSF for indicated studies ordered by Dr. Cordero.
[2025-07-31 09:32] LABS: Red Blood Cell,CSF 0 cells/uL (0)
[2025-07-31 09:44] LABS: Red Blood Cell,CSF 0 cells/uL (0)
[2025-07-31 10:19] LABS: Glucose,CSF 51 mg/dl (40-70)
[2025-07-31 10:37] LABS: Tube Number: Tube 1
[2025-07-31 10:38] LABS: Tube Number: Tube 3
== END 2025-07-31 08:20 | disposition home or self-care (01) ==
LOC: SC.PAINP 07:17
PROVIDERS: Specialist; PCP Nurse Practitioner Family; Visit Provider Anesthesiology
DX: G93.2 Benign intracranial hypertension (principal); G89.29 Other chronic pain; R51.9 Headache, unspecified; Z79.899 Other long term (current) drug therapy; Z82.49 Family history of ischemic heart disease and other diseases of the circulatory system; Z90.49 Acquired absence of other specified parts of digestive tract; E28.2 Polycystic ovarian syndrome
CPT/HCPCS: 62328; 82945; 84155; 87101; 87116; 87186; 87899; 89051; J2003

== ENCOUNTER 2025-09-01 12:47 | Outpatient (CLI) | payer OTHER, SELFPAY ==
--- OUTSIDE RECORDS SUMMARY | 2025-07-10 09:00 | XMS_ITS | Encounter Summary ---
Author Organization [facility] Address [address] [place] [id number] Care Team Providers Care Hospital Clinic Assistant Name Role Phone Mele Perry MD Primary Care Provider + Encounter Details Date Type Department Care Team (Late st Contact Info) Description 07/10/2025 10:00 AM EDT Flu Shot [facility] [address] [facility] [place] [address] Need for influenza vaccination (Primary Dx) Social History Tobacco Use Types Packs/Day Years [...] documented as of this encounter Visit Diagnoses Diagnosis Need for influenza vaccination- Primary Need for prophylactic vaccination and inoculation against influenza documented in this encounter Care Teams Hospital Clinic Assistant Relationship Specialty Start Date End Date Mele Perry MD [address] [place] [id number] PCP - General Family Medicine 11/07/24 documented as of this encounter
--- OUTSIDE RECORDS SUMMARY | 2025-09-01 12:50 | XMS_ITS | Clinical Summary ---
Author Organization [facility] Address [address] [place] [address] Care Team Providers Care Manager Beauty Name Role Phone Mele Perry MD Primary [...] (07/12/2017): Added automatically from request for surgery [id number] Assessment & Plan (11/12/2024 2:46 PM EST): Patient is s/p multiple imaging studies and consult with Neurosurgery and this has been deemed to be a normal variant in vessel size and not an AVM. Encounters Date Type Department Care Team Description 07/10/2025 10:00 AM EDT Flu Shot [facility] [address] [place] [address] Need for influenza vaccination (Primary Dx) 07/10/2025 Travel from Last 3 Months Immunizations Immunization Administration Dates Next Due Fluzone >6mos 07/10/2025 Family History Medical History Relation Name Comments [...] ANNUAL PHYSICAL 07/11/2017 HEPATITIS C SCREENING 07/11/2017 PAP SMEAR 03/26/2027 03/26/2024 (Patient-Reported (Performed Externally)) TDAP/TD VACCINES (2 - Td or Tdap) 10/23/2034 10/23/2024 INFLUENZA VACCINE Completed 07/10/2025 Pneumococcal Vaccine 0-49 Aged Out No longer eligible based on patient's age to complete this topic Insurance [employer] Care Teams Manager Beauty Relationship Specialty Start Date End Date Mele Perry MD [address] [place] [address] [place] [address] PCP - General Family Medicine 11/07/24
--- OUTSIDE RECORDS SUMMARY | 2025-09-01 12:50 | XMS_ITS | Encounter Summary ---
Author Organization [facility] Address [address] [place] [address] Care Team Providers Care Sharepoint Specialist Name Role Phone Richard Peyton Baldomero MENA Primary Care Provider +1- [phone] Reason for Referral * Consultation (Routine) - Authorized Specialty Diagnoses / Procedures Referred By Contac t Referred To Contact Neurology Diagnoses Chronic migraine without aura without status migrainosus, not intractable Nicolasa Cordero MD [address] [place] [address] [place] [address] Phone: tel: fax: Referral ID Status Reason Start Date Expiration Date Visits Requested Visits Authorized [id number] Authorized Specialty Services Required 02/03/2027 1 1 Encounter Details Date Type Department Care Team (Late st Contact Info) Description 08/04/2025 [facility] Practice [address] [place] [address] Nicolasa Cordero MD [address] [place] [address] [place] [address] Chronic migraine without aura without status migrainosus, not intractable (Primary Dx) Social History Tobacco Use Types Packs/Day Years Used Date Smoking Tobacco: Never Assessed Comments Unknown Sex and Gender Information Value Date Recorded Sex Assigned at Not on file Legal Sex Female 5:58 PM EDT Gender Identity Not on file Sexual Orientation Not on file documented as of this encounter Plan of Treatment Scheduled Referrals Name Type Priority Associated Diagnoses Orde r Schedule Ambulatory referral to Neurology Outpatient Referral Routine Chronic migraine without aura without status migrainosus, not intractable Expected: 08/04/2025 (Approximate), Expires: 02/05/2027 documented as of this encounter Visit Diagnoses Diagnosis Chronic migraine without aura without status migrainosus, not intractable- Primary documented in this encounter Care Teams Sharepoint Specialist Relationship Specialty Start Date End Date Peyton Ramos APRN [address] [place] [id number] PCP - General 01/28/21 documented as of this encounter
--- OUTSIDE RECORDS SUMMARY | 2025-09-01 12:50 | XMS_ITS | Encounter Summary ---
Author Organization [facility] Address [address] [place] [id number] Care Team Providers Care Body Make Up Artist Name Role Phone Mele Perry MD Primary Care Provider + Encounter Details Date Type Department Care Team (Latest Contact Info) Description 07/10/2025 Travel Social History Tobacco Use Types Packs/Day Years [...] on filedocumented in this encounter Care Teams Body Make Up Artist Relationship Specialty Start Date End Date Mele Perry MD [address] [place] [address] PCP - General Family Medicine 11/07/24 documented as of this encounter
--- OUTSIDE RECORDS SUMMARY | 2025-09-01 12:50 | XMS_ITS | Clinical Summary ---
Author Organization [facility] Address [address] [place] [address] Care Team Providers Care Sourcing Intern Name Role Phone Peyton Ramos APRN Primary Care Provider +1- [phone] Encounters Date Type Department Care Team Description 08/04/2025 [facility] [address] [place] [address] Nicolasa Cordero MD Chronic migraine without aura without status migrainosus, not intractable (Primary Dx) from Last 3 Months Social History Tobacco Use Types Packs/Day Years Used Date Smoking Tobacco: Never Assessed Comments Unknown Sex and Gender Information Value Date Recorded Sex Assigned at Not on file Legal Sex Female 5:58 PM EDT Gender Identity Not on file Sexual Orientation Not on file Plan of Treatment Not on file Care Teams Sourcing Intern Relationship Specialty Start Date End Date Peyton Ramos APRN [address] [place] [address] PCP - General 01/28/21
== END 2025-09-01 23:59 | disposition home or self-care (01) ==
PROVIDERS: PCP Nurse Practitioner Family; Visit Provider Obstetrics & Gynecology
DX: N91.2 Amenorrhea, unspecified (principal); Z32.01 Encounter for pregnancy test, result positive
CPT/HCPCS: 36415; 84144; 84702

== ENCOUNTER 2025-09-03 11:36 | Outpatient (CLI) | payer OTHER, SELFPAY ==
--- OUTSIDE RECORDS SUMMARY | 2025-07-10 09:00 | XMS_ITS | Encounter Summary ---
Author Organization [facility] Address [address] [place] [id number] Care Team Providers Care Boat Canvas Maker And Installer Name Role Phone Mele Perry MD Primary Care Provider + Encounter Details Date Type Department Care Team (Late st Contact Info) Description 07/10/2025 10:00 AM EDT Flu Shot [facility] [address] [facility] [place] [address] Need for influenza vaccination (Primary Dx) [...] influenza documented in this encounter Care Teams Boat Canvas Maker And Installer Relationship Specialty Start Date End Date Mele Perry MD [address] [place] [id number] PCP - General Family Medicine 11/07/24 documented as of this encounter
--- OUTSIDE RECORDS SUMMARY | 2025-09-03 12:28 | XMS_ITS | Encounter Summary ---
Author Organization [facility] Address [address] [place] [address] Care Team Providers Care Rock Breaker Name Role Phone Richard Peyton Baldomero MENA Primary Care Provider +1- [phone] Reason for Referral * Consultation (Routine) - Authorized Specialty Diagnoses / Procedures Referred By Contac t Referred To Contact Neurology Diagnoses Chronic migraine without aura without status migrainosus, not intractable Nicolasa Cordero MD [address] [place] [address] [place] [address] Phone: tel: fax: Referral ID Status Reason Start Date Expiration Date Visits Requested Visits Authorized [id number] Authorized Specialty Services Required 02/03/2027 1 1 Encounter Details Date Type Department Care Team (Late st Contact Info) Description 08/04/2025 [facility] Practice [address] [place] [address] Nicolasa Cordero MD [address] [place] [address] Chronic migraine without aura without status [...] Primary documented in this encounter Care Teams Rock Breaker Relationship Specialty Start Date End Date Peyton Ramos APRN [address] [place] [id number] PCP - General 01/28/21 documented as of this encounter
--- OUTSIDE RECORDS SUMMARY | 2025-09-03 12:28 | XMS_ITS | Encounter Summary ---
Author Organization [facility] Address [address] [place] [id number] Care Team Providers Care Office Mail Clerk Name Role Phone Mele Perry MD Primary [...] on filedocumented in this encounter Care Teams Office Mail Clerk Relationship Specialty Start Date End Date Mele Perry MD [address] [place] [address] PCP - General Family Medicine 11/07/24 documented as of this encounter
--- OUTSIDE RECORDS SUMMARY | 2025-09-03 12:28 | XMS_ITS | Clinical Summary ---
Author Organization [facility] Address [address] [place] [address] Care Team Providers Care Binder Lockstitch Name Role Phone Peyton Ramos APRN Primary Care Provider +1- [phone] Encounters Date Type Department Care Team Description 08/04/2025 Community [facility] Practice [address] [place] [address] Nicolasa Cordero MD Chronic migraine without aura [...] of Treatment Not on file Care Teams Binder Lockstitch Relationship Specialty Start Date End Date Peyton Ramos APRN [address] [place] [address] PCP - General 01/28/21
--- OUTSIDE RECORDS SUMMARY | 2025-09-03 12:28 | XMS_ITS | Clinical Summary ---
Author Organization [facility] Address [address] [place] [address] Care Team Providers Care Vegetable Scullion Name Role Phone Mele Perry MD Primary [...] (07/12/2017): Added automatically from request for surgery [id number] Assessment & Plan (11/12/2024 2:46 PM EST): Patient is s/p multiple imaging studies and consult with Neurosurgery and this has been deemed to be a normal variant in vessel size and not an AVM. Encounters Date Type Department Care Team Description 07/10/2025 10:[address] [facility] [address] [place] [address] Need for influenza vaccination (Primary [...] complete this topic Insurance [employer] Care Teams Vegetable Scullion Relationship Specialty Start Date End Date Mele Perry MD [address] [place] [address] [place] [address] PCP - General Family Medicine 11/07/24
== END 2025-09-03 23:59 | disposition home or self-care (01) ==
LOC: LAB 11:37
PROVIDERS: PCP Nurse Practitioner Family; Visit Provider Obstetrics & Gynecology
DX: N91.2 Amenorrhea, unspecified (principal); Z32.01 Encounter for pregnancy test, result positive
CPT/HCPCS: 36415; 84702